=== PATIENT | female | born 1940 | race Caucasian/White ===

== ENCOUNTER → 2017-04-16 | Outpatient (CLI) | payer OTHER ==
[~2017-04-16] MED LIST: ACET-1256 PO; ALBUAER2 INH; ASPI325T4 PO; B-CO1CAP17 PO; CALC12502 PO; CHOL100027 PO; ESTR1CRE PV; FLUO40CA8 PO; GARLTAB3 PO; LORA-741 PO; OMEP40CA PO; SIMV20TA5 PO; TIOTCAP INH; TRIA3AER NAE; TRMCR130WC TOP; VITA100C2 PO
--- NOTE | 2017-04-16 15:45 | MAMMOGRAPHY REPORT ---
BILATERAL DIGITAL SCREENING MAMMOGRAM WITH CAD: 04/16/2017 CLINICAL HISTORY: Routine screening examination. TECHNIQUE: Bilateral CC and MLO views were obtained. Current study was also evaluated with a Compute r Aided Detection (CAD) system. COMPARISON: Comparison is made to exams dated: 01/31/2016 mammogram, 01/27/2015 mammogram, 06/17/2012 mammogram, 05/22/2011 mammogram, 03/23/2010 mammogram - [facility], and 10/13/2008. BREAST COMPOSITION: There are scattered areas of fibroglandular density in both breasts. FINDINGS: There is a 5 mm focal asymmetry in the lower outer posterior left breast, for which additi onal spot compression tomosynthesis views and targeted ultrasound are recommended, although this coul d represent a cyst. There is a stable circumscribed 8mm mass in the upper outer middle one third of the left breast, prev iously documented to represent a cyst on ultrasound. No other suspicious mass, architectural distorti on or cluster of microcalcifications is seen. IMPRESSION: ACR BI-RADS CATEGORY 0: INCOMPLETE EVALUATION: NEED ADDITIONAL IMAGING EVALUATION The 5 mm focal asymmetry in the lower outer posterior left breast needs additional evaluation. The patient will be called to schedule an appointment. Approximately 10% of breast cancers are not detected with mammography. A negative mammographic report should not delay biopsy if a clinically suggestive mass is present. Amanda Segura M.D. ay/:04/16/2017 14:59:21 Assistant Child Care Teacher: Emily MENSAH(Eddie)(Eliane), [facility] letter sent: Addl Imaging 0 BI-RADS Code: ACR BI-RADS Category 0: Incomplete Evaluation: Need Additional Imaging Evaluation
== END | disposition home or self-care (01) ==
LOC: C.MAMM 13:42
PROVIDERS: ATTEND Obstetrics & Gynecology
DX: Z12.31 Encounter for screening mammogram for malignant neoplasm of breast (principal); N64.89 Other specified disorders of breast

== ENCOUNTER → 2017-04-25 | Outpatient (CLI) | payer OTHER ==
--- NOTE | 2017-04-25 14:35 | MAMMOGRAPHY REPORT ---
UNILATERAL LEFT DIGITAL DIAGNOSTIC MAMMOGRAM TOMOSYNTHESIS WITH CAD AND TARGETED LEFT ULTRASOUND: CLINICAL HISTORY: Callback from screening mammogram for left breast mass. TECHNIQUE: Breast tomosynthesis in addition to standard 2D mammography was performed. Current study was also evaluated with a Computer Aided Detection (CAD) system. Spot compression left CC and MLO 2- D and tomosynthesis images were obtained. COMPARISON: Comparison is made to exams dated: 04/16/2017 mammogram, 01/31/2016 mammogram, 01/27/2015 mammogram, 06/17/2012 mammogram, 05/22/2011 mammogram, and 03/23/2010 mammogram - [facility]. BREAST COMPOSITION: There are scattered areas of fibroglandular density in the left breast. FINDINGS: Spot compression views demonstrate a persistent lobulated 7 mm mass within the left latera l breast at approximately 3 to 4:00 posteriorly. Additionally, there is an oval circumscribed 8 mm m ass in the left upper outer quadrant which was previously shown to represent a cyst on the prior 2008 ultrasound exam and is stable compared to multiple prior exams. Targeted ultrasound was performed of the area of the mammographic mass in the left breast. In the le ft breast at 4:00, 6 cm from the nipple, there is a lobulated hypoechoic 4 x 3 mm mass. This is not clearly cystic and could represent a complicated cyst versus a solid mass. This corresponds with the mammographic mass and is indeterminant. Recommend ultrasound-guided core needle biopsy for further evaluation. In the left breast at 2:00, 3 cm from the nipple, there is an oval anechoic circumscribe d 9 x 8 mm mass, which corresponds with the stable mammographic mass and is consistent with a benign simple cyst. IMPRESSION: ACR BI-RADS CATEGORY 4: SUSPICIOUS, TARGETED ULTRASOUND ACR BI-RADS CATEGORY 4: SUSPICIO US Hypoechoic 4 mm cystic versus solid mass in the left breast at 4:00 on ultrasound, which corresponds with the mammographic mass. The mass is indeterminate and ultrasound-guided core needle biopsy is re commended for further evaluation. A phone call was made to the physician's office to confirm faxed results were received. The patient has been verbally notified of the results. She tentatively scheduled the biopsy before leaving the [facility]. Approximately 10% of breast cancers are not detected with mammography. A negative mammographic report should not delay biopsy if a clinically suggestive mass is present. Kelly An M.D. ah/:04/25/2017 11:00:23 Supervisor [employer]: Jeimy KAPLAN)(Eliane), [facility] letter sent: Abnormal 4/5 BI-RADS Code: ACR BI-RADS Category 4: Suspicious Ultrasound BI-RADS: ACR BI-RADS Category 4: Suspici ous
== END | disposition home or self-care (01) ==
LOC: C.MAMM 10:28
PROVIDERS: ATTEND Obstetrics & Gynecology
DX: N64.89 Other specified disorders of breast (principal); N63.0 Unspecified lump in unspecified breast

== ENCOUNTER → 2017-05-07 | Outpatient (CLI) | payer OTHER ==
--- NOTE | 2017-05-07 10:19 | Discharge Instructions ---
Discharge Instructions Procedure Procedure Date: May 07, 2017. Reason for visit: Left Mass. Discharge Discharge Date: May 07, 2017. Discharge Diagnosis: post left breast ultrasound guided core biopsy Instructions Activity Recommendations: Additional Limitations (see below) Return to School/Work: no limitations Recommended Home Diet: No Limitations Provider Instructions: ACTIVITY RECOMMENDATIONS: * No lifting, pushing, pulling or exercising the affected side for three days. RETURN TO SCHOOL/WORK: * You may return to work/school after the procedure, but do not perform any strenuous activities for 24 to 48 hours. MEDICATIONS: * Tylenol (two 325 mg) every four to six hours if needed for mild pain (if not allergic to Tylenol). DIET: * Resume previous diet. SPECIAL CARE INSTRUCTIONS: * Keep biopsy site dry for 24 hours. May shower after 24 hours, but do not soak (bathe) incision. * May remove Tegaderm (plastic patch) tomorrow AFTER showering. * Leave the steri-strips on for one week. Allow the steri-strips to fall off by themselves. If not off after one week, you may remove them. You may place a Bandaid crosswise over the strips, if desired. * Apply ice 10 minutes on and 10 minutes off as needed. * Wear a bra at bedtime to sleep more comfortably for 2-3 days. * Your referring physician should have the results after approximately 5 to 7 business days. * Call for unusual bleeding, fever, drainage, etc or if you have any questions call [phone] during normal business hours or after hours call Dr Segura, . FOLLOW UP VISIT: Follow-up with Referring Physician as scheduled. Allergies Coded Allergies: No Known Allergies (Unverified , 08/25/12) Giovanni Jorgensen Recommendations: Call your doctor if: * Temperature above 101 degrees * Pain not relieved by pain medicine ordered * There is increased drainage or redness from any incision * You have any unanswered questions or concerns. Your Doctors Instructions noted above were prepared by provider Amanda Segura. Patient Signature Section: Patient Instructions Signature Page Perri White Patient (or Guardian) Signature/Date: I have read and understand the instructions given to me by my caregivers. Caregiver/RN/Doctor Signature/Date: The above-named patient and/or guardian has received patient instructions on this date. + Original Patient Signature Page (only) stays with chart. Please make copy for patient.
--- NOTE | 2017-05-08 07:37 | MAMMOGRAPHY REPORT ---
THIS REPORT HAS BEEN AMENDED. ULTRASOUND GUIDED BIOPSY LEFT BREAST: 05/07/2017 CLINICAL HISTORY: 77-year-old woman called back from screening mammography for a 6 mm focal asymmetry in the lower outer quadrant of the left breast posteriorly. She was found to have an indeterminate grouping of solid versus cystic masses in the 4:00 left breast and now presents for biopsy. COMPARISON: Comparison is made to exams dated: 04/25/2017 mammogram, 04/25/2017 ultrasound, 04/16/20 17 mammogram, 01/31/2016 mammogram, 01/27/2015 mammogram, and 06/17/2012 mammogram - [facility]. PATIENT CONSENT: The procedure, risks and benefits were discussed with the patient and informed conse nt was obtained both verbally and in writing. Specific risks to this procedure include: bleeding, in fection, puncture of adjacent structure, nontarget biopsy, sampling error, pain, metal allergy and me dication reaction. PROCEDURE DESCRIPTION: A time out was performed and the left breast was agreed as the site of biopsy. The skin was prepped and draped in the usual sterile fashion. The grouping of oval solid versus cyst ic masses in the 4:00 left breast was chosen as the target for biopsy. Subcutaneous and intraparenchy mal 1% buffered lidocaine, with and without epinephrine, was administered as local anesthesia. A skin incision was made. Through the incision, 3 samples were taken with a 14 gauge Achieve biopsy device . The grouping of masses decreased in size after each sample. A ribbon shaped metallic marker was p laced at the biopsy site. Hemostasis was achieved after manual compression. The patient tolerated the procedure well and there was no immediate complication. The samples were sent to the pathology depa rtment in an appropriately labeled container. Postprocedure left CC and ML tomosynthesis images were obtained. There is a new ribbon-shaped biopsy marker clip aligning with the previously observed focal asymmetry in question. The asymmetry has de creased in size mammographically, concordant with the documented decreasing size during the biopsy. IMPRESSION: ULTRASOUND GUIDED BIOPSY Status post ultrasound-guided core biopsy of an indeterminate grouping of solid versus cystic masses in the 4:00 left breast, with ribbon-shaped biopsy marker clip placed at the site. The patient will receive notification of the biopsy results from her referring physician. Amanda Segura M.D. ay/:05/07/2017 12:32:04 Dental Therapist: Le KAPLAN)(Eliane), [facility] AMENDMENT: 05/15/2017 Amanda Segura M.D. Pathology results from the ultrasound-guided core biopsy of a small lobulated mass versus grouping of masses in the 4:00 posterior left breast yielded benign breast tissue with usual ductal hyperplasia. Negative for in situ and invasive carcinoma. The pathology results are concordant with the imaging appearance. Given the multilobulated nature of the mass, would recommend follow-up left diagnostic tomosynthesis mammograms and possible ultrasound to ensure stability in 6 months. letter sent: Follow Up Recommended 3
--- NOTE | 2017-05-08 07:40 | MAMMOGRAPHY REPORT ---
UNILATERAL LEFT DIGITAL DIAGNOSTIC MAMMOGRAM TOMOSYNTHESIS: 05/07/2017 CLINICAL HISTORY: Indeterminate solid versus cystic mass versus grouping of masses in the 4:00 left b reast. Patient presents for ultrasound guided core biopsy. Please refer to report from left breast ultrasound guided core biopsy performed at the same time for full detail. IMPRESSION: POST PROCEDURE IMAGING FOR MARKER PLACEMENT Please refer to report from left breast ultrasound guided core biopsy performed at the same time for full detail. Approximately 10% of breast cancers are not detected with mammography. A negative mammographic report should not delay biopsy if a clinically suggestive mass is present. Amanda Segura M.D. ay/:05/07/2017 10:20:10 Import Export Coordinator: Le MENSAH(R)(M), [facility] BI-RADS Code: Post Procedure Imaging For Marker Placement
== END | disposition home or self-care (01) ==
LOC: C.MAMM 09:09
PROVIDERS: ATTEND Obstetrics & Gynecology
DX: N63.20 Unspecified lump in the left breast, unspecified quadrant (principal)

== ENCOUNTER 2019-10-26 12:15 | Inpatient (IN) ==
[2019-10-26] MEDS ORDERED: methylPREDNISolone 125 MG/2 ML VIAL IV STA (12:43)
[2019-10-26] MEDS ORDERED: ALBUT/IPRATROP 3MG/0.5MG NEB 3 ML VIAL INH STA (12:43)
--- NOTE | 2019-10-26 12:49 | Emergency Department Note ---
History of Present Illness General Chief complaint: Shortness of Breath/Dyspnea Stated complaint: SOB Time Seen by Provider: 10/26/19 12:35 Source: patient History of Present Illness Provider complaint: Shortness of breath Onset (ago): week(s) Location: chest Severity: moderate Pain Consistency: + intermittent Relieved By: + medication (Nebulizers and rescue kits) Associated symptoms: + chest pain, + cough and + weakness; no diaphoresis, no fever/chills, no malaise and no nausea/vomiting This is an 79-year-old female with a history of COPD presenting with shortness of breath for several weeks. She states is gotten worse over the past several days. The patient has been using rescue kits as provided by her PCP which include azithromycin and prednisone. She states they provide temporary relief but she still feels short of breath and is using nebulizers at home. She does not use oxygen at home. She has had no recent travel or exposure to sick people. She does have a chronic cough which she has had for several years. It is nonproductive. It has not changed in quality or severity. She also complains of chest pain which she has had for a year and a half. She describes it as an aching tightness in her chest. She says is not sharp or pressure-like. She has been seen by a braille and talking books clerk for this. She gets it intermittently for the past year and a half and it is not new today. She states is better with a heating pad. She denies any fever, diaphoresis, malaise or body aches, diar adeola, abdominal pain, loss of smell or taste or leg swelling or pain. Home Medications Home Medications Medication Instructions Recorded Confirmed Type apixaban [Eliquis] 5 mg PO BID 10/26/19 10/26/19 History atorvastatin 20 mg PO DAILY 10/26/19 10/26/19 History fluoxetine 40 mg PO DAILY 10/26/19 10/26/19 History glipizide 10 mg PO DAILY 10/26/19 10/26/19 History lorazepam 0.5 mg PO DAILY 10/26/19 10/26/19 History omeprazole 40 mg PO DAILY 10/26/19 10/26/19 History propranolol 60 mg PO DAILY 10/26/19 10/26/19 History Allergies Allergy/AdvReac Type Severity Reaction Status Date / Time No Known Allergies Allergy Unverified 10/26/19 14:07 Past Med/Surg History Medical History COPD (chronic obstructive pulmonary disease) Dyslipidemia Social History marital status: Current Living Situation: Spouse Feels Safe at Home: Yes Smoking Status: Never smoker Review of Systems See HPI for pertinent positives & negatives. and A total of 10 systems reviewed and were otherwise negative Physical Exam Vital Signs Vital Signs - 24 hr 10/26/19 12:15 10/26/19 12:19 10/26/19 12:43 Temperature 36.7 C Temperature Source Oral Pulse Rate 75 Pulse Rate [Right Finger] Respiratory Rate 20 Respiratory Effort / Characteristics Non-Labored Respiratory Depth Normal Blood Pressure 166/91 H Blood Pressure [Left Arm] Blood Pressure Mean 116 Blood Pressure Mean [Left Arm] Pulse Oximetry 96 95 96 Oxygen Delivery Method Room Air Room Air Room Air Sepsis Recent Fever Within 48 Hours No Sepsis New/Unexplained Change in Mental Status No Sepsis Action Taken by Nursing No Action Required 10/26/19 13:17 10/26/19 14:15 10/26/19 16:00 Temperature Temperature Source Pulse Rate Pulse Rate [Right Finger] 63 66 68 Respiratory Rate 16 18 18 Respiratory Effort / Characteristics Non-Labored Spontaneous Respiratory Depth Blood Pressure Blood Pressure [Left Arm] 150/78 H 154/95 H Blood Pressure Mean Blood Pressure Mean [Left Arm] 102 114 Pulse Oximetry 94 100 93 Oxygen Delivery Method Room Air Room Air Room Air Sepsis Recent Fever Within 48 Hours Sepsis New/Unexplained Change in Mental Status Sepsis Action Taken by Nursing Constitutional: Vital signs reviewed. Eyes: Pupils are equal round reactive to light. Conjunctiva are noninjected. ENT: Pharynx is clear without erythema or exudate. Mucous membranes are moist. Neck supple without meningeal signs. Respiratory: Mild tachypnea with diffuse wheezing bilaterally. Breath sounds a re equal bilaterally. Cardiovascular: Regular rate and rhythm. No rubs or gallops. GI: Soft, nondistended and nontender. Bowel sounds are present. Musculoskeletal: No peripheral edema. No lower extremity tenderness. Integumentary: No cyanosis. or jaundice. Neurological: The patient is awake and alert. No focal deficits. Psychiatric: Normal affect. Not anxious appearing. Course Administered Medications Discontinued Medications Albuterol (Duoneb) 12 ml INH ONE STA Stop: 10/26/19 12:44 Last Admin: 10/26/19 13:17 Dose: 12 ml Documented by: [id number] Methylprednisolone (Solumedrol) 125 mg IV NOW STA Stop: 10/26/19 12:44 Last Admin: 10/26/19 13:07 Dose: 125 mg Documented by: [id number] Medical Decision Making Differential Diagnosis COPD exacerbation, bronchitis, pneumonia, ACS, viral syndrome Medical Records Attestation: I reviewed the patient's medical records. I did perform a limited focused review of portions of the patient's old chart on the electronic medical record. The patient has had no recent pertinent visits to this hospital. Home Medications Current Medication List: was personally reviewed by me Laboratory Data Attestation: I reviewed the patient's lab results. Result diagrams: 10/26/19 12:53 10/26/19 12:53 Lab Results 10/26/19 10/26/19 10/26/19 Range/Units 12:53 12:53 12:53 WBC 11.51 H (4.8-10.8) K/uL RBC 5.01 (4.2-5.4) M/uL Hgb 15.1 (12.0-16.0) g/dL Hct 45.3 (37-47) % MCV 90.4 (80-100) fL MCH 30.1 (25-34) pg MCHC 33.3 (32-36) g/dL RDW Std Deviation 43.1 (36.4-46.3) fL RDW Coeff of Temo 13.0 (11.5-14.5) % Plt Count 248 (130-400) K/uL MPV 10.6 H (7.4-10.4) fL Immature Gran % (Auto) 0.3 % Neut % (Auto) 65.4 % Lymph % (Auto) 20.2 % [place] % (Auto) 6.9 % Eos % (Auto) 6.9 % Baso % (Auto) 0.3 % Immature Gran # (Auto) 0.03 H (0.00-0.02) K/uL Neut # (Auto) 7.54 H (1.4-6.5) K/uL Lymph # (Auto) 2.32 (1.2-3.4) K/uL [place] # (Auto) 0.79 H (0.11-0.59) K/uL Eos # (Auto) 0.79 H (0-0.5) K/uL Baso # (Auto) 0.04 (0-0.2) K/uL PT 11.5 (9.0-12.0) Seconds INR 1.1 (0.9-1.1) APTT 27.7 (21.0-31.0) Seconds PTT Ratio 1.0 Sodium 138 (136-145) mmol/L Potassium 3.8 (3.5-5.1) mmol/L Chloride 102 (98-107) mmol/L Carbon Dioxide 29 (21-32) mmol/L Anion Gap 6.0 (3-11) BUN 12 (7-18) mg/dl Creatinine 0.90 (0.6-1.2) mg/dl Est Cr Clr Drug Dosing 48.5 ml/min Est GFR ( Amer) 70.0 Est GFR (Non-Af Amer) 60.4 BUN/Creatinine Ratio 12.8 (10-20) Glucose 166 H (70-99) mg/dl Calcium 9.5 (8.5-10.1) mg/dl Total Bilirubin 1.0 (0.2-1) mg/dl AST 46 H (15-37) U/L ALT 22 (12-78) U/L Alkaline Phosphatase 130 H (45-117) U/L Troponin I < 0.015 (0-0.045) ng/ml Total Protein 6.7 (6.4-8.2) gm/dl Albumin 3.6 (3.4-5.0) gm/dl Globulin 3.1 (2.5-4.0) gm/dl Albumin/Globulin Ratio 1.2 (0.9-2) Influenza Type A (PCR) (Neg) Influenza Type B (PCR) (Neg) 10/26/19 Range/Units 13:00 WBC (4.8-10.8) K/uL RBC (4.2-5.4) M/uL Hgb (12.0-16.0) g/dL Hct (37-47) % MCV (80-100) fL MCH (25-34) pg MCHC (32-36) g/dL RDW Std Deviation (36.4-46.3) fL RDW Coeff of [place] (11.5-14.5) % Plt Count (130-400) K/uL MPV (7.4-10.4) fL Immature Gran % (Auto) % Neut % (Auto) % Lymph % (Auto) % [place] % (Auto) % Eos % (Auto) % Baso % (Auto) % Immature Gran # (Auto) (0.00-0.02) K/uL Neut # (Auto) (1.4-6.5) K/uL Lymph # (Auto) (1.2-3.4) K/uL [place] # (Auto) (0.11-0.59) K/uL Eos # (Auto) (0-0.5) K/uL Baso # (Auto) (0-0.2) K/uL PT (9.0-12.0) Seconds INR (0.9-1.1) APTT (21.0-31.0) Seconds PTT Ratio Sodium (136-145) mmol/L Potassium (3.5-5.1) mmol/L Chloride (98-107) mmol/L Carbon Dioxide (21-32) mmol/L Anion Gap (3-11) BUN (7-18) mg/dl Creatinine (0.6-1.2) mg/dl Est Cr Clr Drug Dosing ml/min Est GFR ( Amer) Est GFR (Non-Af Amer) BUN/Creatinine Ratio (10-20) Glucose (70-99) mg/dl Calcium (8.5-10.1) mg/dl Total Bilirubin (0.2-1) mg/dl AST (15-37) U/L ALT (12-78) U/L Alkaline Phosphatase (45-117) U/L Troponin I (0-0.045) ng/ml Total Protein (6.4-8.2) gm/dl Albumin (3.4-5.0) gm/dl Globulin (2.5-4.0) gm/dl Albumin/Globulin Ratio (0.9-2) Influenza Type A (PCR) Neg for Influ A (Neg) Influenza Type B (PCR) Neg for Influ B (Neg) Imaging Data Radiologist's Impression: XR chest 1V portable CLINICAL HISTORY: 79 years-old Female presenting with Dyspnea. TECHNIQUE: Portable upright AP view of the chest was obtained. COMPARISON: 12/31/2017. FINDINGS: Trace atherosclerosis of the aortic arch. Cardiac silhouette top normal in size. Minimal left basilar opacities. No pleural effusion or pneumothorax. Osseous structures normal. Upper abdomen normal. IMPRESSION: 1. Minimal left basilar opacities likely atelectasis or scarring. No convincing evidence of acute cardiopulmonary disease. ACT 112: Negative or not required by law. Electronically signed by: Fredis Alford M.D. 10/26/2019 1:09 PM ECG Data Attestation: I personally reviewed and interpreted this ECG as follows: Indication: + chest pain Rate (beats per minute): 70 Rhythm: + normal sinus ECG Intervals/blocks: no First degree AV block ECG ST segments: no ST elevation ECG Findings: no PVCs Blood Pressure Blood Pressure Findings: Elevated blood pressure Blood Pressure Disposition: Referred to patients primary care provider AFSHAN Narrative I did evaluate the patient as noted above. The patient is presenting with difficulty breathing. She does have COPD and has diffuse wheezing on examination. She does complain of chest tightness but she has had this for over a year and a half and it is unchanged. She also complains of a cough which she has had for several years which is unchanged. IV access was established. The patient was placed on a continuous nurse monitoring. Cardiac monitoring: Indication: Dyspnea and chest pain Rate and rhythm: Normal sinus rhythm rate of 75 without dysrhythmia. I did order and personally review the patient's 12-lead EKG as described above. She has no acute ischemic changes on her twelve-lead EKG. I did order and personally reviewed the images of the patient's chest x-ray as described above. There is no evidence of infiltrate. I did order and review the patient's blood work as noted in the electronic medical record. She has a mildly elevated white blood cell count but she has been on prednisone. She is not anemic. Electrolytes are unremarkable. Troponin is negative. I did treat the patient with Solu-Medrol IV. She was also given an hour-long DuoNeb with albuterol and Atrovent. I did reassess the patient. She has some improvement in her wheezing but still has significant wheezing. When we did ambulate her her pulse ox dropped into the high 80s. I recommended the patient stay in the hospital for further care and evaluation. At this time she has no known risk factors for COVID-19. She has a cough but it is chronic for 3 years and has not changed in quality. She complains of shortness of breath but this can be explained by her COPD. I did discuss the case with the hospitalist and assistant case manager. Impression & Plan Acute exacerbation of chronic obstructive airways disease, Left-sided chest p ain, Chronic cough Discharge Plan Visit Data Chief Complaint: Shortness of Breath/Dyspnea Stated Complaint: SOB ED Provider: Nazario Anderson Discharge Problem: Acute exacerbation of chronic obstructive airways disease, Left-sided chest pain, Chronic cough Forms Stand Alone Forms: [facility] Prescriptions Prescriptions: No Action fluoxetine 40 mg capsule 40 mg PO DAILY RF: 0 atorvastatin 20 mg tablet 20 mg PO DAILY RF: 0 glipizide 10 mg tablet 10 mg PO DAILY RF: 0 propranolol 60 mg capsule,extended release 24 hr 60 mg PO DAILY RF: 0 omeprazole 40 mg capsule,delayed release(DR/EC) 40 mg PO DAILY RF: 0 lorazepam 0.5 mg tablet 0.5 mg PO DAILY RF: 0 Eliquis 5 mg tablet 5 mg PO BID RF: 0 Referrals Referrals: Isreal Jones MD [Primary Care Provider] -
[2019-10-26 13:05] LABS: Basophils # (auto) 0.04 K/uL (0-0.2); Basophils % (auto) 0.3 %; Eosinophils # (auto) 0.79 K/uL (0-0.5); Eosinophils % (auto) 6.9 %; Hematocrit (blood only) 45.3 % (37-47); Hemoglobin 15.1 g/dL (12.0-16.0); Immature Granulocytes # (auto) 0.03 K/uL (0.00-0.02); Immature Granulocytes % (auto) 0.3 %; Lymphocytes # (auto) 2.32 K/uL (1.2-3.4); Lymphocytes % (auto) 20.2 %; Mean Corpuscular Hemoglobin 30.1 pg (25-34); Mean Corpuscular Hgb Conc 33.3 g/dL (32-36); Mean Corpuscular Volume 90.4 fL (80-100); Mean Platelet Volume 10.6 fL (7.4-10.4); Monocytes # (auto) 0.79 K/uL (0.11-0.59); Monocytes % (auto) 6.9 %; Neutrophils # (auto) 7.54 K/uL (1.4-6.5); Neutrophils % (auto) 65.4 %; Platelet Count 248 K/uL (130-400); RDW Standard Deviation 43.1 fL (36.4-46.3); Red Blood Count 5.01 M/uL (4.2-5.4); White Blood Count 11.51 K/uL (4.8-10.8)
--- NOTE | 2019-10-26 13:10 | XRay Report ---
XR chest 1V portable CLINICAL HISTORY: 79 years-old Female presenting with Dyspnea. TECHNIQUE: Portable upright AP view of the chest was obtained. COMPARISON: 12/31/2017. FINDINGS: Trace atherosclerosis of the aortic arch. Cardiac silhouette top normal in size. Minimal left basilar opacities. No pleural effusion or pneumothorax. Osseous structures normal. Upper abdomen normal. IMPRESSION: 1. Minimal left basilar opacities likely atelectasis or scarring. No convincing evidence of acute ca rdiopulmonary disease. ACT 112: Negative or not required by law. Electronically signed by: Fredis Alford M.D. 10/26/2019 1:09 PM
[2019-10-26 13:17] LABS: INR 1.1 (0.9-1.1); Partial Thromboplastin Time 27.7 Seconds (21.0-31.0); Prothrombin Time 11.5 Seconds (9.0-12.0)
[2019-10-26 13:20] LABS: Alanine Aminotransferase 22 U/L (12-78); Albumin Level 3.6 gm/dl (3.4-5.0); Aspartate Aminotransferase 46 U/L (15-37); BUN Creatinine Ratio 12.8 (10-20); Blood Urea Nitrogen 12 mg/dl (7-18); Calcium 9.5 mg/dl (8.5-10.1); Carbon Dioxide 29 mmol/L (21-32); Chloride 102 mmol/L (98-107); Creatinine Clr Calc Pharmacy 48.5 ml/min; Est GFR (Non-African American) 60.4; Glucose 166 mg/dl (70-99); Potassium 3.8 mmol/L (3.5-5.1); Sodium 138 mmol/L (136-145)
[2019-10-26 13:24] LABS: Albumin Globulin Ratio 1.2 (0.9-2); Alkaline Phosphatase 130 U/L (45-117); Globulin 3.1 gm/dl (2.5-4.0); Total Protein 6.7 gm/dl (6.4-8.2); Troponin I < 0.015 ng/ml (0-0.045)
[2019-10-26 13:54] LABS: Influenza A virus by PCR Neg for Influ A (Neg); Influenza B virus by PCR Neg for Influ B (Neg)
[2019-10-26] MEDS ORDERED: CARBOHYDRATES FOR HYPOGLYCEMIA PO PRN (17:54)
[2019-10-26] MEDS ORDERED: GLUCAGON FOR INJ 1 MG VIAL SQ PRN (17:54)
[2019-10-26] MEDS ORDERED: GLUCOSE 10 TABS/TUBE PO PRN (17:54)
[2019-10-26] MEDS ORDERED: DEXTROSE 50% 50 ML SYRINGE IV PRN (17:54)
[2019-10-26] MEDS ORDERED: GLUCOSE 40% GEL 15 GM TUBE PO PRN (17:54)
--- NOTE | 2019-10-26 18:02 | History & Physical Report ---
Date of Service October 26, 2019 Assessment & Plan (1) Acute exacerbation of chronic obstructive airways disease: -given solumedrol 125 mg x 1 by ED provider. despite nebulizer treatment by ED provider, patient continue to have expiratory wheeze -patient also has been chest discomfort with coughing and relieved when coughing out mucous -admission chest X ray: no lung infiltrates of pneumonia or pulmonary edema -initial troponin negative, low suspicion for coronary artery disease, patient a lready anticoagulated on eliquis for PAF, can trend troponins x 2 sets -low suspicion of COVID-19, based on age, will have send out COVID-19 testing performed to rule out viral exacerbation of COPD, will need tp be on isolation/contact isolation -place on scheduled q6 nebulizer treatments, plan for solumedrol 40 mg IV in tomorrow morning Paroxysmal atrial fibrillation -continue home dose Eliquis DVT: prophylaxis on eliquis Essential tremors -on propranolol -PT/OT evaluations Type 2 diabetes mellitus without rn long term care current use of insulin -check HbA1c -hold home dose glipizide, give sliding scale insulin as needed History of Migraine headache -acetaminophen prn Mood disorder: anxiety, depresssion -lorazepam 0.5 mg BID prn for anxiety -fluoxetine History of Present Illness 79-year-old female with a history of COPD presenting with shortness of breath for several weeks. Has been having wheezing. Chest pain relieved by coughing up mucous. history of headaches. outpatient records of migraine headaches on problem list. denies recent sick contacts. no recent travel history. she reports that her daughter helps her with bringing food in to her house. patient has history of tremors but no falls at home. denies fevers. denies abdominal pain. denies vomiting. denies changes in urination or with bowel movements. patient denies any problems with taking Eliquis for paroxysmal atrial fibrillation. normal heart rates in the ED Family History: Essential Tremors in sibling Allergies: patient denies any drug or food allergies Primary Care Provider: Isreal Jones MD Allergies Allergy/AdvReac Type Severity Reaction Status Date / Time No Known Allergies Allergy Unverified 10/26/19 14:07 Home Medications Home Medications Medication Instructions Recorded Confirmed Type apixaban [Eliquis] 5 mg PO BID 10/26/19 10/26/19 History atorvastatin 20 mg PO DAILY 10/26/19 10/26/19 History fluoxetine 40 mg PO DAILY 10/26/19 10/26/19 History glipizide 10 mg PO DAILY 10/26/19 10/26/19 History lorazepam 0.5 mg PO DAILY 10/26/19 10/26/19 History omeprazole 40 mg PO DAILY 10/26/19 10/26/19 History propranolol 60 mg PO DAILY 10/26/19 10/26/19 History Past Med/Surg History Medical History COPD (chronic obstructive pulmonary disease) Dyslipidemia Social History marital status: Current Living Situation: Spouse Feels Safe at Home: Yes Smoking Status: Never smoker Review of Systems Review of Systems: All systems reviewed & are unremarkable except as noted in HPI & below Physical Exam Constitutional: comfortable Eyes: PERRL, conjunctivae normal, anicteric sclerae EOM intact bilaterally ENMT: external ear and nose normal, oropharynx normal Neck: normal visual inspection Respiratory: normal respiratory effort and + audible wheezes Cardiovascular: Rate/Rhythm: regular rate Gastrointestinal (Abdomen): normal bowel sounds, soft, nontender, no hepatosplenomegaly Musculoskeletal: Head/Neck/Chest: normocephalic and head atraumatic Neurologic: PERRL, EOMI, accommodation nl, no face palsy, no dysarthria CN's II-XI intact bilaterally Psychiatric: A+Ox3, euthymic affect Results & Data Results & Data ([facility]) Vital Signs (Past 12 Hours) Vital Signs Temp Pulse Pulse Resp BP BP Pulse Ox 10/26/19 16:00 68 18 154/95 H 93 10/26/19 14:15 66 18 150/78 H 100 10/26/19 13:17 63 16 94 10/26/19 12:43 96 10/26/19 12:19 36.7 C 75 20 166/91 H 95 10/26/19 12:15 96 Code Status & VTE Plan VTE Prophylaxis Plan VTE Prophylaxis will be ordered: Yes
[2019-10-26] MEDS ORDERED: ONDANSETRON INJ 2 MG/ML 2 ML VIAL IV PRN (18:03)
[2019-10-26] MEDS ORDERED: ACETAMINOPHEN 325 MG TAB PO PRN (18:03)
[2019-10-26 18:04] LABS: C Reactive Protein 0.32 mg/dl (0-0.29); Ferritin 126.1 ng/ml (8-388)
[2019-10-26] MEDS ORDERED: ALBUT/IPRATROP 3MG/0.5MG NEB 3 ML VIAL NEB SCH (19:00)
[2019-10-26] MEDS: APIXABAN 5 MG TABLET PO SCH (20:32)
[2019-10-26] MEDS ORDERED: APIXABAN 5 MG TABLET PO SCH (21:00)
[2019-10-26] MEDS ORDERED: ALBUTEROL HFA 8 GM INHALER INH PRN (21:12)
[2019-10-26] MEDS: INSULIN ASPART 100 UNITS/ML 3 ML PEN SC SCH (22:26)
[2019-10-26] MEDS ORDERED: ACETAMINOPHEN 325 MG TAB PO STA (22:35)
[2019-10-27 05:04] LABS: Basophils # (auto) 0.01 K/uL (0-0.2); Basophils % (auto) 0.1 %; Hematocrit (blood only) 43.5 % (37-47); Hemoglobin 14.4 g/dL (12.0-16.0); Immature Granulocytes # (auto) 0.02 K/uL (0.00-0.02); Immature Granulocytes % (auto) 0.2 %; Lymphocytes # (auto) 2.03 K/uL (1.2-3.4); Lymphocytes % (auto) 18.1 %; Mean Corpuscular Hemoglobin 29.4 pg (25-34); Mean Corpuscular Hgb Conc 33.1 g/dL (32-36); Mean Corpuscular Volume 88.8 fL (80-100); Mean Platelet Volume 11.2 fL (7.4-10.4); Monocytes # (auto) 0.19 K/uL (0.11-0.59); Monocytes % (auto) 1.7 %; Neutrophils # (auto) 8.94 K/uL (1.4-6.5); Neutrophils % (auto) 79.9 %; Platelet Count 263 K/uL (130-400); RDW Coefficient of Variation 12.8 % (11.5-14.5); RDW Standard Deviation 41.3 fL (36.4-46.3); White Blood Count 11.19 K/uL (4.8-10.8)
[2019-10-27 05:46] LABS: Alanine Aminotransferase 20 U/L (12-78); Albumin Level 3.3 gm/dl (3.4-5.0); Aspartate Aminotransferase 31 U/L (15-37); BUN Creatinine Ratio 21.4 (10-20); Blood Urea Nitrogen 17 mg/dl (7-18); Calcium 9.5 mg/dl (8.5-10.1); Carbon Dioxide 26 mmol/L (21-32); Chloride 103 mmol/L (98-107); Creatinine Clr Calc Pharmacy 54.1 ml/min; Est GFR (African American) 79.5; Est GFR (Non-African American) 68.6; Glucose 223 mg/dl (70-99); Potassium 4.3 mmol/L (3.5-5.1); Sodium 135 mmol/L (136-145)
[2019-10-27 05:51] LABS: Alkaline Phosphatase 115 U/L (45-117); Bilirubin,Total 0.8 mg/dl (0.2-1); Globulin 3.3 gm/dl (2.5-4.0); Total Protein 6.6 gm/dl (6.4-8.2); Troponin I < 0.015 ng/ml (0-0.045)
[2019-10-27 06:09] LABS: Estimated Average Glucose 163 mg/dl; Hemoglobin A1C 7.3 % (4.5-5.6)
[2019-10-27] MEDS ORDERED: AZITHROMYCIN 250 MG TAB PO ONE (07:27)
[2019-10-27] MEDS ORDERED: ALBUT/IPRATROP 3MG/0.5MG NEB 3 ML VIAL NEB SCH (07:30)
[2019-10-27] MEDS ORDERED: ALBUTEROL HFA 8 GM INHALER INH SCH (07:30)
[2019-10-27] MEDS ORDERED: LORazepam 0.5 MG TAB PO SCH ×2 (08:00→09:00)
[2019-10-27] MEDS ORDERED: FLUOXETINE HCL 20 MG CAP PO SCH ×2 (08:00→09:00)
[2019-10-27] MEDS ORDERED: ATORVASTATIN 20 MG TAB PO SCH ×2 (08:00→09:00)
[2019-10-27] MEDS ORDERED: PANTOprazole 40 MG TAB PO SCH ×2 (08:00→09:00)
[2019-10-27] MEDS ORDERED: PROPRANOLOL HCL 60 MG LA CAP PO SCH ×2 (08:00→09:00)
[2019-10-27] MEDS: APIXABAN 5 MG TABLET PO SCH (08:50)
[2019-10-27] MEDS: methylPREDNISolone 40 MG in SYRINGE 0 ML IV SCH ×2 (08:57→09:47)
[2019-10-27] MEDS: INSULIN ASPART 100 UNITS/ML 3 ML PEN SC SCH ×2 (08:58→13:15)
[2019-10-27] MEDS ORDERED: FLUTICASONE/VILANTEROL 100/25MCG 14 PUFFS/INHALER INH SCH (09:00)
[2019-10-27] MEDS ORDERED: ACETAMINOPHEN 325 MG TAB PO PRN (09:02)
[2019-10-27] MEDS ORDERED: predniSONE 20 MG TAB PO STA (09:37)
[2019-10-27] MEDS ORDERED: SUMAtriptan succinate 25 MG TAB PO PRN (10:28)
--- NOTE | 2019-10-27 10:47 | Hospitalist Progress Note ---
Date of Service October 27, 2019 Assessment & Plan (1) Acute exacerbation of chronic obstructive airways disease: -given solumedrol 125 mg x 1 by ED provider. despite nebulizer treatment by ED provider, patient continue to have expiratory wheeze -patient also has been chest discomfort with coughing and relieved when coughing out mucous -admission chest X ray: no lung infiltrates of pneumonia or pulmonary edema - low suspicion for coronary artery disease, patient already anticoagulated on e liquis for PAF, can troponins negative x 2 -low suspicion of COVID-19, based on age, a send out COVID-19 testing performed on 10/26/2019 to rule out viral exacerbation of COPD, patient was placed on isolation/contact isolation as per hospital protocol and continued beta agonists -Disposition and plans: 10/27/2019: Patient seen and examined in AM. She had headache when she woke up and it resolved. Her breathing is improved. COVID-19 results returned as negative and patient and her daughter was updated about no COV-19 exposure as per testing Patient was given a dose of azithromycin 500 mg as respiratory antibiotic as part of COPD exacerbation treatment and electronic prescription then azithromycin of 250 mg daily starting on 10/28/2019 for 4 more days. Patient was given prednisone 40 mg in morning of 10/27/2019 and electronic prescription made of 40 mg prednisone starting on 10/28/2019 for 5 more days Patient was given Ellipta inhalations in morning of 10/27/19 and electronic prescription of Advair inhaler as 2 puffs once day for every day electronic prescription of albuterol inhaler 2 puffs to be taken as needed every 6 hours for shortness of breath or wheezing as a rescue inhaler hospice case manager arranging delivery of nebulizer machine so that patient can take nebulizer treatment every 6 hours as needed for shortness or wheezing if albuterol inhaler does not work to alleviate respiratory symptoms all electronic prescriptions made to [facility] [address] [place] [address], [place] [address]. 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 Electronic prescriptions made for acetaminophen 325mg every 6 hours as needed for pain (or fever). also electronic prescription of migraine headache medication for sumatriptan 25 mg twice a day as needed for headache. Patient does not appear to have focal neuro logical deficits and although she was offered CT head or Brain MRI testing by hospital doctor for her headache concerns, the patient wishes to discuss with primary care doctor and for any prior insurance authorizations Mood disorder: Anxiety, depression -lorazepam 0.5 mg BID prn for anxiety -fluoxetine Daughter Grecia [phone] Walt home phone [phone] Son is named Burke [phone] Admission and Anticipated Discharge Date Admission Date: October 26, 2019 Subjective Patient seen and examined in AM. She had headache when she woke up and it resolved. Her breathing is improved. COVID-19 results returned as negative and patient and her daughter was updated about no COV-19 exposure. denies chest pain today. no abdomen pain. no nausea. no vomiting. no dizziness. Discharge plans and followups discussed at length Review of Systems Review of Systems: All systems reviewed & are unremarkable except as noted in Subjective Physical Exam Constitutional: comfortable Eyes: PERRL, conjunctivae normal, anicteric sclerae EOM intact bilaterally ENMT: external ear and nose normal, oropharynx normal Neck: normal visual inspection Respiratory: normal respiratory effort Cardiovascular: Rate/Rhythm: regular rate Gastrointestinal (Abdomen): normal bowel sounds, soft, nontender, no hepatosplenomegaly Musculoskeletal: Head/Neck/Chest: normocephalic and head atraumatic Neurologic: PERRL, EOMI, accommodation nl, no face palsy, no dysarthria CN's II-XI intact bilaterally Psychiatric: A+Ox3, euthymic affect Results & Data Results & Data ([facility]) Vital Signs (Past 12 Hours) Vital Signs Temp Pulse Pulse Resp BP Pulse Ox 10/27/19 08:53 36.9 C 74 18 156/81 H 93 10/27/19 07:53 79 18 96 10/27/19 00:55 36.9 C 80 18 152/75 H 91 10/26/19 22:42 80 176/84 H
[2019-10-27] MEDS ORDERED: ALBUT/IPRATROP 3MG/0.5MG NEB 3 ML VIAL NEB PRN (11:45)
--- NOTE | 2019-10-27 11:48 | Discharge Summary ---
Date of Service October 27, 2019 Admission HPI Per Admitting Provider 79-year-old female with a history of COPD presenting with shortness of breath for several weeks. Has been having wheezing. Chest pain relieved by coughing up mucous. history of headaches. outpatient records of migraine headaches on problem list. denies recent sick contacts. no recent travel history. she reports that her daughter helps her with bringing food in to her house. patient has history of tremors but no falls at home. denies fevers. denies abdominal pain. denies vomiting. denies changes in urination or with bowel movements. patient denies any problems with taking Eliquis for paroxysmal atrial fibrillation. normal heart rates in the ED Principal Diagnosis Acute Exacerbation of Chronic obstructive pulmonary disease (COPD), Headache, Anxiety, Essential Tremors, Paroxysmal atrial fibrillation, Type 2 diabetes mellitus without intermediate current use of insulin Discharge Exam Constitutional comfortable Eyes PERRL, conjunctivae normal, anicteric sclerae EOM intact bilaterally ENMT external ear and nose normal, oropharynx normal Neck normal visual inspection Respiratory normal respiratory effort Cardiovascular Rate/Rhythm: regular rate Gastrointestinal (Abdomen) normal bowel sounds, soft, nontender, no hepatosplenomegaly Musculoskeletal Head/Neck/Chest: normocephalic and head atraumatic Neurologic PERRL, EOMI, accommodation nl, no face palsy, no dysarthria CN's II-XI intact bilaterally Psychiatric A+Ox3, euthymic affect Discharge Data Allergies Allergy/AdvReac Type Severity Reaction Status Date / Time No Known Allergies Allergy Unverified 10/26/19 14:07 Consultations 10/26/19 16:27 ED Decision to Admit Stat 10/26/19 19:48 Consult Case Management - Discharge Planning Routine Hospital Course (1) Acute exacerbation of chronic obstructive airways disease: -given solumedrol 125 mg x 1 by ED provider. despite nebulizer treatment by ED provider, patient continue to have expiratory wheeze -patient also has been chest discomfort with coughing and relieved when coughing out mucous -admission chest X ray: no lung infiltrates of pneumonia or pulmonary edema - low suspicion for coronary artery disease, patient already anticoagulated on eliquis for PAF, can troponins negative x 2 -low suspicion of COVID-19, based on age, a send out COVID-19 testing performed on 10/26/2019 to rule out viral exacerbation of COPD, patient was placed on isolation/contact isolation as per hospital protocol and continued beta agonists -Disposition and plans: 10/27/2019: Patient seen and examined in AM. She had headache when she woke up and it resolved. Her breathing is improved. COVID-19 results returned as negative and patient and her daughter was updated about no COV-19 exposure as per testing Patient was given a dose of azithromycin 500 mg as respiratory antibiotic as part of COPD exacerbation treatment and electronic prescription then azithromycin of 250 mg daily starting on 10/28/2019 for 4 more days. Patient was given prednisone 40 mg in morning of 10/27/2019 and electronic prescription made of 40 mg prednisone starting on 10/28/2019 for 5 more days Patient was given Ellipta inhalations in morning of 10/27/19 and electronic prescription of Advair inhaler as 2 puffs once day for every day electronic prescription of albuterol inhaler 2 puffs to be taken as needed every 6 hours for shortness of breath or wheezing as a rescue inhaler outpatient case manager arranging delivery of nebulizer machine so that patient can take nebulizer treatment every 6 hours as needed for shortness or wheezing if albuterol inhaler does not work to alleviate respiratory symptoms all electronic prescriptions made to [facility] [address] [place] [address]. Patient given paper prescription for pulse oximeter, patient's oxygen levels should be above 88% on room air in general Patient advised to follow up with primary care doctor as ask for formal Pulmonary Function Testing (PFT) if this was not already performed and pulmonary doctor referral if needed Paroxysmal atrial fibrillation -continue home dose Eliquis -in sinus rhythm DVT: prophylaxis on eliquis Essential tremors -on propranolol Type 2 diabetes mellitus without custodial current use of insulin -HbA1c 7.2 -patient was given sliding scale insulin while inpatient, she may resume her home dose glipizide on discharge Headache, History of Migraine headache -Patient concerned about headaches intermittently. Electronic prescriptions made for acetaminophen 325mg every 6 hours as needed for pain (or fever). also electronic prescription of migraine headache medication for sumatriptan 25 mg twice a day as needed for headache. Patient does not appear to have focal neurological deficits and although she was offered CT head or Brain MRI testing by hospital doctor for her headache concerns, the patient wishes to discuss with primary care doctor and for any prior insurance authorizations Mood disorder: Anxiety, depression -lorazepam 0.5 mg BID prn for anxiety -fluoxetine Daughter Grecia [phone] Walt home phone [phone] Son is named Burke [phone] Total Time Total Time Spent Total Time Spent (In Minutes): 40 minutes Total Time Includes: Examination of the Patient, Discharge Planning, Medication Reconciliation and Communication With Other Providers Discharge Plan Discharge Items Patient Disposition: Home - Self-Care Reason For Visit: COPD EXACERBATION,RULE OUT COVID-19 Discharge Diagnosis: Acute Exacerbation of Chronic obstructive pulmonary disease (COPD), Headache, Anxiety, Essential Tremors, Paroxysmal atrial fibrillation, Type 2 diabetes mellitus without intermediate current use of insulin Condition on Discharge: Good Activity: Per Instructions section Non-emergency contact: Primary Care Provider Call non-emergency contact if: you have any medication questions Follow-up/Referrals: Isreal Jones MD [Primary Care Provider] - 11/04/19 11:20 am (Dr. Jones is unavailable, your appointment is with Dr. Deepika Maynard) Diet: Carb Consistent or DM2 Addtl Attending Provider Instructions: Patient was treated for COPD exacerbation in the hospital with nebulizers and steroids no COV-19 exposure as per testing Patient was given a dose of azithromycin 500 mg as respiratory antibiotic as part of COPD exacerbation treatment and electronic prescription then azithromycin of 250 mg daily starting on 10/28/2019 for 4 more days. Patient was given prednisone 40 mg in morning of 10/27/2019 and electronic prescription made of 40 mg prednisone starting on 10/28/2019 for 5 more days Patient was given Ellipta inhalations in morning of 10/27/19 and electronic prescription of Advair inhaler as 2 puffs once day for every day electronic prescription of albuterol inhaler 2 puffs to be taken as needed every 6 hours for shortness of breath or wheezing as a rescue inhaler outpatient case manager arranging delivery of nebulizer machine so that patient can take nebulizer treatment every 6 hours as needed for shortness or wheezing if albuterol inhaler does not work to alleviate respiratory symptoms all electronic prescriptions made to [facility] [address] [place] [address]. Patient given paper prescription for pulse oximeter, patient's oxygen levels should be above 88% on room air in general Patient advised to follow up with primary care doctor as ask for formal Pulmonary Function Testing (PFT) if this was not already performed and pulmonary doctor referral if needed Patient concerned about headaches intermittently. Electronic prescriptions made for acetaminophen 325mg every 6 hours as needed for pain (or fever). also [employer] prescription of migraine headache medication for sumatriptan 25 mg twice a day as needed for headache. Patient does not appear to have focal neurological deficits and although she was offered CT head or Brain MRI testing by hospital doctor for her headache concerns, [facility] patient wishes to discuss with primary care doctor and for any prior insurance authorizations Pending Studies at Discharge: Yes Stand-Alone Forms: [facility], Smoking Cessation Medications and DC Order Prescriptions: New azithromycin [Zithromax] 250 mg Tablet 250 mg PO DAILY 4 Days Qty: 4 RF: 0 acetaminophen 325 mg tablet 325 mg PO Q6H PRN (Reason: fever or pain) 5 Days Qty: 20 RF: 0 prednisone 20 mg Tablet 40 mg PO DAILY 5 Days Qty: 10 RF: 0 sumatriptan succinate 25 mg Tablet 25 mg PO BID PRN (Reason: migraine headache) 10 Days Qty: 20 RF: 0 fluticasone propion-salmeterol [Advair Diskus] 100-50 mcg/dose blister with device 1 puffs INH DAILY 30 Days Qty: 60 RF: 0 albuterol sulfate 90 mcg/actuation HFA aerosol inhaler 2 puffs INH Q6H PRN (Reason: shortness of breath or wheezing) 30 Days Qty: 6 .7 RF: 0 ipratropium-albuterol 0.5 mg-3 mg(2.5 mg base)/3 mL solution for nebulization 3 ml INH Q6H PRN (Reason: shortness of breath or wheezing) 30 Days Qty: 180 RF: 0 Continued fluoxetine 40 mg capsule 40 mg PO DAILY RF: 0 atorvastatin 20 mg tablet 20 mg PO DAILY RF: 0 glipizide 10 mg tablet 10 mg PO DAILY RF: 0 propranolol 60 mg capsule,extended release 24 hr 60 mg PO DAILY RF: 0 omeprazole 40 mg capsule,delayed release(DR/EC) 40 mg PO DAILY RF: 0 lorazepam 0.5 mg tablet 0.5 mg PO DAILY RF: 0 Eliquis 5 mg tablet 5 mg PO BID RF: 0 Discharge Orders: Discharge Order (Routine); Ordered 10/27/19 Ordered By: Gutierrez Butts/Other Patient Handouts: Hyperglycemia, Hypoglycemia, Diabetes Type 2 Managing Admission Data Admit Date/Time: 10/26/19 17:57 Attending Provider: Gutierrez Schreiber Admit Provider: Gutierrez Schreiber Primary Care Provider: Isreal Jones Other Providers: Nicolle Walton
--- NOTE | 2019-10-27 11:57 | Electrocardiogram Report ---
Test Reason : Blood Pressure : / mmHG Vent. Rate : 070 BPM Atrial Rate : 070 BPM P-R Int : 156 ms QRS Dur : 064 ms QT Int : 400 ms P-R-T Axes : 052 023 077 degrees QTc Int : 432 ms Normal sinus rhythm Nonspecific T wave abnormality Abnormal ECG No previous ECGs available Confirmed by Aubrey Acosta ([id number]) on 10/27/2019 11:57:05 AM Referred By: Confirmed By:Dre Acosta
[2019-10-28] MEDS ORDERED: AZITHROMYCIN 250 MG TAB PO SCH ×2 (08:00→09:00)
[2019-10-28] MEDS ORDERED: FLUTICASONE/VILANTEROL 100/25MCG 14 PUFFS/INHALER INH SCH (08:00)
[2019-10-28] MEDS ORDERED: predniSONE 20 MG TAB PO SCH ×2 (08:00→09:00)
== END 2019-10-27 13:31 | disposition home or self-care (01) | DRG 192 ==
LOC: ED 12:15 → 3E 17:57

== ENCOUNTER 2020-12-09 13:52 | Observation (INO) ==
[2020-12-09] MEDS ORDERED: NITROGLYCERIN SL 0.4 MG/TAB TAB SL PRN ×2 (14:10→20:32)
[2020-12-09] MEDS ORDERED: ASPIRIN CHEW 324 MG PO STA (14:33)
--- NOTE | 2020-12-09 14:33 | Emergency Department Note ---
History of Present Illness General Chief Complaint: Cardiac Assessment Stated Complaint: CHEST PAINS,SOB,NAUSEA,REF BY DOC Time Seen by Provider: 12/09/20 14:05 History of Present Illness Provider Complaint: chest pain Time: 02:00 Duration: constant Onset: during rest Pain Location: substernal and left chest Pain Radiation: LUE Severity: mild Maximum Pain Intensity: 2 Current Pain Intensity: 2 Quality: + aching Relieved By: + nothing Exacerbated By: + nothing Context: no recent illness, no recent surgery, no recent immobilization, no recent travel, no trauma/injury, no new medications and no history of DVT/PE Associated symptoms: + dyspnea; no nausea, no vomiting, no diaphoresis, no syncope, no palpitations, no fever, no cough and no leg swelling Home Medications Medication Instructions Recorded Confirmed Type Eliquis 5 mg PO QPM 10/26/19 12/09/20 History atorvastatin 20 mg PO QAM 10/26/19 12/09/20 History fluoxetine 40 mg PO QAM 10/26/19 12/09/20 History glipizide 10 mg PO QAM 10/26/19 12/09/20 History lorazepam 0.5 mg PO QPM 10/26/19 12/09/20 History omeprazole 40 mg PO QAM 10/26/19 12/09/20 History propranolol 60 mg PO QPM 10/26/19 12/09/20 History cyanocobalamin (vitamin B-12) 100 mcg PO QAM 12/09/20 12/09/20 History [Vitamin B-12] fluticasone furoate-vilanterol 1 inh INHALATION DAILY 12/09/20 12/09/20 History [Breo Ellipta] garlic 100 mg PO QAM 12/09/20 12/09/20 History metformin 1,000 mg PO BIDM 12/09/20 12/09/20 History sumatriptan succinate 25 mg PO UD PRN 12/09/20 12/09/20 History Allergies Allergy/AdvReac Type Severity Reaction Status Date / Time No Known Allergies Allergy Unverified 12/09/20 14:25 Past Med/Surg History Medical History COPD (chronic obstructive pulmonary disease) Dyslipidemia No pertinent family history Surgical History No pertinent past surgical history Social History Smoking Status: Never smoker Second Hand Exposure: Yes; Hx Alcohol Use: Yes Alcohol type: hard liquor Hx Substance Use: No Preferred Language: Spanish Communication Ability: Effective Police Manager Required: No Beliefs That Will Affect Care: None marital status: Current Living Situation: Spouse Feels Safe at Home: Yes Assistive Devices: None Review of Systems A total of 10 systems reviewed and were otherwise negative Physical Exam Vital Signs Vital Signs - 24 hr 12/09/20 14:03 12/09/20 14:05 12/09/20 14:12 Pulse Rate 71 69 65 Pulse Rate from SpO2 Sensor 70 65 Respiratory Rate 18 21 18 Blood Pressure 146/84 H 146/84 H Blood Pressure Mean 104 104 Pulse Oximetry 98 98 98 Oxygen Delivery Method Room Air Sepsis Recent Fever Within 48 Hours No Sepsis New/Unexplained Change in Mental Status No Sepsis Action Taken by Nursing No Action Required 12/09/20 14:13 12/09/20 14:30 12/09/20 15:00 Pulse Rate 66 60 Pulse Rate from SpO2 Sensor 65 61 Respiratory Rate 18 21 Blood Pressure 127/65 119/65 Blood Pressure Mean 85 83 Pulse Oximetry 98 99 96 Oxygen Delivery Method Room Air Room Air Sepsis Recent Fever Within 48 Hours Sepsis New/Unexplained Change in Mental Status Sepsis Action Taken by Nursing 12/09/20 15:01 Pulse Rate 61 Pulse Rate from SpO2 Sensor 62 Respiratory Rate 21 Blood Pressure Blood Pressure Mean Pulse Oximetry 96 Oxygen Delivery Method Room Air Sepsis Recent Fever Within 48 Hours Sepsis New/Unexplained Change in Mental Status Sepsis Action Taken by Nursing Physical Exam GENERAL: She is oriented to person, place, and time. She appears well-developed and well-nourished. She does not appear distressed. HENT: Exam performed. -Head: Normocephalic and atraumatic. -Right Ear: External ear normal. No mastoid tenderness. -Left Ear: External ear normal. No mastoid tenderness. -Mouth/Throat: The oropharynx is clear and moist. No trismus in the jaw. No dental abscesses or uvula swelling. No oropharyngeal exudate or tonsillar abscesses. EYES: Conjunctivae and EOM are normal. Pupils are equal, round, and reactive to light. Right eye exhibits no discharge. Left eye exhibits no discharge. No scleral icterus. NECK: Normal range of motion. Neck supple. No JVD present. No spinous process tenderness present. No carotid bruit present. No rigidity. No tracheal deviation and normal range of motion present. No Brudzinski's sign and no Kernig's sign noted. CV: Normal rate, regular rhythm, normal heart sounds and intact distal pulses. There is no peripheral edema. Palpable radial pulses bue. PULM/CHEST: Effort normal and breath sounds normal. No respiratory distress. No stridor. She has no wheezes. She has no rales. -Chest Wall: She exhibits no tenderness. ABD: The abdomen is soft. Bowel sounds are normal. She has no distension. No mass is present. There is no tenderness. There is no rebound, no guarding, no Cruz's sign and no tenderness at McBurney's point. Rovsig negative MUSC/SKEL: Normal range of motion. There is no peripheral edema, tenderness or deformity. LYMPH: No cervical adenopathy. NEURO: She is alert and oriented to person, place, and time. She has normal strength. No cranial nerve deficit or sensory deficit. Coordination and gait normal. GCS eye subscore is 4. GCS verbal subscore is 5. GCS motor subscore is 6. Cerebellar tests wnl. SKIN: Skin is warm and dry. She is not diaphoretic. PSYCH: She has a normal mood and affect. Behavior is normal. Judgment and thought content normal. Course Course 1405: The patient was evaluated in room C7. A complete history and physical exam was performed Cardiac monitoring: An order was placed for continuous cardiac monitoring. The monitor shows a rate of 70 with sinus rhythm 1540: Vital signs stable. Labs and imaging within normal limits. Patient states her chest pain completely resolved after 1 sublingual nitro. [facility] be [facility] team for chest pain rule out ACS. Administered Medications Nitroglycerin (Nitroglycerin Sl 0.4 Mg/Tab Tab) 0.4 mg SL UD PRN PRN Reason: Chest Pain Stop: 01/08/21 14:09 Last Admin: 12/09/20 14:29 Dose: 0.4 mg Documented by: [id number] Discontinued Medications Aspirin (Aspirin Chew 324 Mg) 324 mg PO NOW STA Stop: 12/09/20 14:34 Last Admin: 12/09/20 15:40 Dose: 324 mg Documented by: [id number] Medical Decision Making Laboratory Data Result diagrams: 12/09/20 14:21 12/09/20 14:21 Labs: Lab Results 12/09/20 12/09/20 12/09/20 Range/Units 14:21 14:21 14:21 WBC 9.49 (4.8-10.8) K/uL RBC 4.60 (4.2-5.4) M/uL Hgb 13.8 (12.0-16.0) g/dL Hct 42.1 (37-47) % MCV 91.5 (80-100) fL MCH 30.0 (25-34) pg MCHC 32.8 (32-36) g/dL RDW Std Deviation 43.0 (36.4-46.3) fL RDW Coeff of [place] 12.8 (11.5-14.5) % Plt Count 246 (130-400) K/uL MPV 11.0 H (7.4-10.4) fL Immature Gran % (Auto) 0.3 % Neut % (Auto) 58.0 % Lymph % (Auto) 32.0 % [place] % (Auto) 7.4 % Eos % (Auto) 2.1 % Baso % (Auto) 0.2 % Neut # (Auto) 5.50 (1.4-6.5) K/uL Lymph # (Auto) 3.04 (1.2-3.4) K/uL [place] # (Auto) 0.70 H (0.11-0.59) K/uL Eos # (Auto) 0.20 (0-0.5) K/uL Baso # (Auto) 0.02 (0-0.2) K/uL Immature Gran # (Auto) 0.03 H (0.00-0.02) K/uL PT 10.6 (9.0-12.0) Seconds INR 1.0 (0.9-1.1) APTT 26.0 (21.0-31.0) Seconds PTT Ratio 1.0 D-Dimer 190 (0-500) ug/L FEU Sodium 141 (136-145) mmol/L Potassium 4.0 (3.5-5.1) mmol/L Chloride 107 (98-107) mmol/L Carbon Dioxide 28 (21-32) mmol/L Anion Gap 6.0 (3-11) BUN 13 (7-18) mg/dl Creatinine 0.87 (0.6-1.2) mg/dl Est Cr Clr Drug Dosing 51.1 ml/min Est GFR ( Amer) 72.4 ml/min Est GFR (Non-Af Amer) 62.5 ml/min BUN/Creatinine Ratio 14.7 (10-20) Glucose 161 H (70-99) mg/dl Calcium 9.1 (8.5-10.1) mg/dl Troponin I 0.027 (0-0.045) ng/ml Lipase 136 (73-393) U/L Imaging Data Chest x-ray: Radiologist's impression: Chest X-Ray 12/09/20 14:10 XR chest 2V PA/lateral CLINICAL HISTORY: Chest Pain COMPARISON STUDY: Chest radiograph October 26, 2019. FINDINGS: Lung volumes are normal. Lungs are clear. There is no pneumothorax or pleural effusion. Mild cardiomegaly is noted. Mediastinal contours are normal. There is no evidence for pulmonary edema. IMPRESSION: No acute cardiopulmonary findings. ACT 112: Negative or not required by law. Electronically signed by: Conor Elizondo M.D. 12/09/2020 3:35 PM ECG Data Indication: chest pain Rate (beats per minute): 66 Rhythm: normal sinus Findings: no ST depression, no ST elevation and no prolonged QT MDM Narrative Vital signs stable. Labs and imaging within normal limits. Patient states her chest pain completely resolved after 1 sublingual nitro. Patient will be admitted to the [facility] hospitalist team for chest pain rule out ACS. Impression & Plan Chest pain Discharge Plan Visit Data Chief Complaint: Cardiac Assessment Stated Complaint: CHEST PAINS,SOB,NAUSEA,REF BY DOC ED Provider: Marques Glover Discharge Problem: Chest pain Patient Disposition: Being Evaluated by Hospitalist Forms Stand Alone Forms: [facility] Prescriptions Prescriptions: No Action fluoxetine 40 mg capsule 40 mg PO QAM RF: 0 atorvastatin 20 mg tablet 20 mg PO QAM RF: 0 glipizide 10 mg tablet 10 mg PO QAM RF: 0 propranolol 60 mg capsule,extended release 24 hr 60 mg PO QPM RF: 0 omeprazole 40 mg capsule,delayed release(DR/EC) 40 mg PO QAM RF: 0 lorazepam 0.5 mg tablet 0.5 mg PO QPM RF: 0 Eliquis 5 mg tablet 5 mg PO QPM RF: 0 sumatriptan succinate 25 mg tablet 25 mg PO UD PRN (Reason: Migraine Headache) RF: 0 metformin 500 mg tablet extended release 24 hr 1,000 mg PO BIDM RF: 0 Breo Ellipta 200-25 mcg/dose blister with device 1 inh INHALATION DAILY RF: 0 cyanocobalamin (vitamin B-12) [Vitamin B-12] 100 mcg Tablet 100 mcg PO QAM RF: 0 garlic 100 mg Tablet 100 mg PO QAM RF: 0 Referrals Referrals: Isreal Jones MD [Primary Care Provider] - Discharge Problem: Chest pain Qualifiers: Chest pain type: unspecified Qualified Code(s): R07.9 - Chest pain, unspecified
[2020-12-09 14:39] LABS: Basophils # (auto) 0.02 K/uL (0-0.2); Basophils % (auto) 0.2 %; Eosinophils % (auto) 2.1 %; Hematocrit (blood only) 42.1 % (37-47); Hemoglobin 13.8 g/dL (12.0-16.0); Immature Granulocytes # (auto) 0.03 K/uL (0.00-0.02); Immature Granulocytes % (auto) 0.3 %; Lymphocytes # (auto) 3.04 K/uL (1.2-3.4); Mean Corpuscular Hgb Conc 32.8 g/dL (32-36); Mean Corpuscular Volume 91.5 fL (80-100); Monocytes % (auto) 7.4 %; Platelet Count 246 K/uL (130-400); RDW Coefficient of Variation 12.8 % (11.5-14.5); White Blood Count 9.49 K/uL (4.8-10.8)
[2020-12-09 14:53] LABS: BUN Creatinine Ratio 14.7 (10-20); Calcium 9.1 mg/dl (8.5-10.1); Creatinine Clr Calc Pharmacy 51.1 ml/min; D Dimer 190 ug/L FEU (0-500); Est GFR (African American) 72.4 ml/min; Est GFR (Non-African American) 62.5 ml/min; Prothrombin Time 10.6 Seconds (9.0-12.0)
[2020-12-09 14:58] LABS: Troponin I 0.027 ng/ml (0-0.045)
--- NOTE | 2020-12-09 15:37 | XRay Report ---
XR chest 2V PA/lateral CLINICAL HISTORY: Chest Pain COMPARISON STUDY: Chest radiograph October 26, 2019. FINDINGS: Lung volumes are normal. Lungs are clear. There is no pneumothorax or pleural effusion. Mil d cardiomegaly is noted. Mediastinal contours are normal. There is no evidence for pulmonary edema. IMPRESSION: No acute cardiopulmonary findings. ACT 112: Negative or not required by law. Electronically signed by: Conor Elizondo M.D. 12/09/2020 3:35 PM
--- NOTE | 2020-12-09 15:57 | Electrocardiogram Report ---
Test Reason : Blood Pressure : / mmHG Vent. Rate : 066 BPM Atrial Rate : 066 BPM P-R Int : 154 ms QRS Dur : 072 ms QT Int : 412 ms P-R-T Axes : 042 018 093 degrees QTc Int : 431 ms Normal sinus rhythm Diffuse Minor Nonspecific T wave abnormality Abnormal ECG When compared with ECG of 26-OCT-2019 12:37, No significant change was found Confirmed by Bart Cazares ([id number]) on 12/09/2020 3:57:32 PM Referred By: Allegra Wolf Confirmed By:Bart Cazares
--- NOTE | 2020-12-09 17:17 | History & Physical Report ---
Date of Service December 09, 2020 Assessment & Plan (1) Chest pain: Pt is 80 y/o F with PMH DM II, dyslipidemia, asthma/COPD, depression, anxiety, GERD, paroxysmal atrial fibrillation on Eliquis, pancreatic cyst, TAY on CPAP presented to ER with complaint of chest pain started at 0200 today with palpitations lasting 1 hour, Chest discomfort continued. In ER vitals stable. Initial troponin detectable at 0.027, EKG sinus rhythm with diffuse T wave flattening, negative D-dimer. Was given 324 mg aspirin and 1 sublingual nitroglycerin with relief of chest discomfort. Patient being admitted for further evaluation. CHEST PAIN R/O ACS. Risk factors: dyslipidemia, DM, obesity. DDX: episode of atrial fibrillation, musculoskeletal etiology -Monitor Vitals -Repeat EKG in am -Will trend troponin -Echo -lipid panel in am, continue statin -aspirin -Nitro prn CP and repeat EKG for CP -Cardiology consult (2) Paroxysmal atrial fibrillation: May have had episode atrial fibrillation therapist asst hours with report of palpitations and heart rate 140 Patient only taking Eliquis once daily secondary to easy bruising -Continue Eliquis twice daily. Spoke with cardiology who recommended continuing Eliquis and no need for heparin at this time -Continue propranolol (3) Diabetes mellitus, type II: A1c: 7.4 in 07/2020 -Hold Metformin and glipizide -NovoLog sliding scale per protocol -A1c in a.m. (4) Dyslipidemia: -Continue statin (5) COPD (chronic obstructive pulmonary disease): Asthma No signs exacerbation at this time -Continue albuterol, Breo (6) Depression: -Continue fluoxetine (7) TAY (obstructive sleep apnea): -CPAP at bedtime (8) GERD (gastroesophageal reflux disease): -Continue PPI (9) Essential tremor: -Continue propranolol DVT Prophylaxis -On Eliquis Full Code as per discussion with pt Follows with Dr Jones for routine care Pt was seen and care coordinated with Dr Burrows. See addendum History of Present Illness Chief Complaint: CP Primary Care Provider: Isreal oJnes MD Pt is 80 y/o F with PMH DM II, dyslipidemia, asthma/COPD, depression, anxiety, GERD, paroxysmal atrial fibrillation on Eliquis, pancreatic cyst, TAY on CPAP presented to ER with complaint of chest pain. Patient states woke up at 2 AM today with aching to left chest and left arm. Also noted "pounding" of heart. Reports checked her pulse with home pulse oximeter and was reading 140. States she had associated dizziness, slight nausea. She reports palpitations lasted an hour. Left chest aching continued and presented to ER today. In ER was given 1 sublingual nitroglycerin with relief of chest aching. She denies any recurrent palpitations. Used heating pad to left chest with little relief of chest aching. Patient denies trauma. She does report she has been working in her garden. Patient reports in past has had spasms to muscles over her chest wall however it is usually not related with palpitations. Patient states has been taking Eliquis once daily instead of twice daily secondary to easy bruising. Had two COVID-19 vaccinations ([employer]) in August 2020. She notes some swelling ankles when outside working in garden resolves with elevation of feet. Denies fever/chills, V/D/C, PEREZ, syncope, vision changes, neck pain, SOB, orthopnea, palpitations, cough, sore throat, choking, otalgia, rhinorrhea, abdominal pain, paresthesias, weakness, extremity weakness, rashes, urinary symptoms. In ER vitals stable. Initial troponin detectable at 0.027, EKG sinus rhythm with diffuse T wave flattening, negative D-dimer. Was given 324 mg aspirin and 1 sublingual nitroglycerin with relief of chest discomfort. Patient being admitted for further evaluation. Allergies Allergy/AdvReac Type Severity Reaction Status Date / Time No Known Allergies Allergy Unverified 12/09/20 14:25 Home Medications Medication Instructions Recorded Confirmed Type Eliquis 5 mg PO BID 10/26/19 12/09/20 History atorvastatin 20 mg PO QAM 10/26/19 12/09/20 History fluoxetine 40 mg PO QAM 10/26/19 12/09/20 History glipizide 10 mg PO QAM 10/26/19 12/09/20 History lorazepam 0.5 mg PO QPM 10/26/19 12/09/20 History omeprazole 40 mg PO QAM 10/26/19 12/09/20 History propranolol 60 mg PO QPM 10/26/19 12/09/20 History cyanocobalamin (vitamin B-12) 100 mcg PO QAM 12/09/20 12/09/20 History [Vitamin B-12] fluticasone furoate-vilanterol 1 inh INHALATION DAILY 12/09/20 12/09/20 History [Breo Ellipta] garlic 100 mg PO QAM 12/09/20 12/09/20 History metformin 1,000 mg PO BIDM 12/09/20 12/09/20 History sumatriptan succinate 25 mg PO UD PRN 12/09/20 12/09/20 History Past Med/Surg History Medical History (Updated 12/09/20 @ 18:42 by Maritza Santillan PA-C) Asthma COPD (chronic obstructive pulmonary disease) Depression Diabetes mellitus, type II Dyslipidemia Essential tremor GERD (gastroesophageal reflux disease) TAY (obstructive sleep apnea) Pancreatic cyst Paroxysmal atrial fibrillation Surgical History (Updated 12/09/20 @ 18:33 by Maritza Santillan PA-C) History of appendectomy History of tonsillectomy and adenoidectomy Family History (Updated 12/09/20 @ 18:33 by Maritza Santillan PA-C) Other Cancer Diabetes Hypertension Stroke Social History (Updated 12/09/20 @ 18:34 by Maritza Santillan PA-C) Smoking Status: Never smoker Second Hand Exposure: Yes; Hx Alcohol Use: Yes Alcohol type: hard liquor Alcohol Intake Frequency: Monthly or Less Hx Substance Use: No Preferred Language: Estonian Communication Ability: Effective Precipitator Operator Required: No Beliefs That Will Affect Care: None marital status: Current Living Situation: Spouse Feels Safe at Home: Yes Assistive Devices: None Review of Systems Review of Systems: All systems reviewed & are unremarkable except as noted in HPI & below Physical Exam Physical Exam: General: no acute distress, overweight Head: normocephalic, atraumatic Eyes: conjunctiva non-injected, anicteric ENT: normal inspection external ears, nose, mucous membranes moist Neck: supple, trachea midline Lungs: clear, no respiratory distress, no wheezing/rhonchi/rales CV: RRR, no murmur, no pretibial edema, left chest wall with slight tenderness to palpation Abd: normal BS, soft, non-tender Ext: no cyanosis, no calf tenderness Neuro: A&O x 3, no focal deficits noted, normal affect Skin: warm, dry Results & Data Results & Data ([facility]) Vital Signs (Past 12 Hours) Vital Signs Pulse Resp BP Pulse Ox 12/09/20 15:01 61 21 96 12/09/20 15:00 60 21 119/65 96 12/09/20 14:30 66 18 127/65 99 12/09/20 14:13 98 12/09/20 14:12 65 18 98 12/09/20 14:05 69 21 146/84 H 98 12/09/20 14:03 71 18 146/84 H 98 Laboratory Results Short CBC 12/09/20 Range/Units 14:21 WBC 9.49 (4.8-10.8) K/uL Hgb 13.8 (12.0-16.0) g/dL Hct 42.1 (37-47) % Plt Count 246 (130-400) K/uL BMP 12/09/20 14:21 Sodium 141 Potassium 4.0 Chloride 107 Carbon Dioxide 28 BUN 13 Creatinine 0.87 Glucose 161 H Calcium 9.1 Cardiac Enzymes 12/09/20 Range/Units 14:21 Troponin I 0.027 (0-0.045) ng/ml Diagnostic Findings Chest X-Ray 12/09/20 14:10 XR chest 2V PA/lateral CLINICAL HISTORY: Chest Pain COMPARISON STUDY: Chest radiograph October 26, 2019. FINDINGS: Lung volumes are normal. Lungs are clear. There is no pneumothorax or pleural effusion. Mild cardiomegaly is noted. Mediastinal contours are normal. There is no evidence for pulmonary edema. IMPRESSION: No acute cardiopulmonary findings. ACT 112: Negative or not required by law. Electronically signed by: Conor Elizondo M.D. 12/09/2020 3:35 PM ECG Rate (beats per minute): 66 Rhythm: sinus rhythm Additional Comments: diffuse T wave flattening Supervising Physician Co-Signing Physician Notes Attending addendum: The patient was seen and examined in emergency room She woke up from sleep early in the morning around 2 AM with palpitation and some left precordial discomfort which lasted for about an hour She has had some pain and discomfort referred to the left neck and also left upper extremity Did have minimal shortness of breath and sweating but no nausea and/or vomiting Her pain was relieved with 1 sublingual nitro in the emergency room On examination No apparent distress at rest but remains anxious Hemodynamically stable Chest-clear to auscultate bilaterally. Tenderness over the precordium. Heart-S1-S2 regular, no murmur appreciated Abdomen-benign Extremities-trace edema bilaterally SCRAP HOIST OPERATOR-alert, awake and oriented x3 Her admission labs, EKG and imaging studies reviewed No significant EKG abnormality and no increase in troponin Given the symptoms being typical of angina and/or PAF she will be admitted to telemetry unit We will get serial cardiac enzymes rule out possibility of ACS and cardiology consult Agree with assessment and plan as outlined above by TEX [address] Dr (1) Chest pain Chest pain type: unspecified Qualified Code(s): R07.9 - Chest pain, un specified
[2020-12-09] MEDS ORDERED: CARBOHYDRATES FOR HYPOGLYCEMIA PO PRN (20:32)
[2020-12-09] MEDS ORDERED: DEXTROSE 50% 50 ML SYRINGE IV PRN (20:32)
[2020-12-09] MEDS ORDERED: GLUCOSE 10 TABS/TUBE PO PRN (20:32)
[2020-12-09] MEDS ORDERED: GLUCAGON FOR INJ 1 MG VIAL SQ PRN (20:32)
[2020-12-09] MEDS ORDERED: GLUCOSE 40% GEL 15 GM TUBE PO PRN (20:32)
[2020-12-09] MEDS ORDERED: ACETAMINOPHEN 325 MG TAB PO PRN (20:32)
[2020-12-09] MEDS ORDERED: LIDOCAINE 5% 1 PATCH TD SCH (21:00)
[2020-12-09] MEDS ORDERED: PROPRANOLOL HCL 60 MG LA CAP PO SCH (21:00)
[2020-12-09] MEDS ORDERED: APIXABAN 5 MG TABLET PO SCH (21:00)
[2020-12-09] MEDS ORDERED: LORazepam 0.5 MG TAB PO SCH (21:00)
[2020-12-09] MEDS: INSULIN ASPART 100 UNITS/ML 3 ML PEN SC SCH (21:17)
[2020-12-09] MEDS: APIXABAN 5 MG TABLET PO SCH (21:55)
[2020-12-10 02:45] LABS: Hematocrit (blood only) 39.9 % (37-47); Mean Corpuscular Hemoglobin 30.3 pg (25-34); Mean Corpuscular Hgb Conc 32.6 g/dL (32-36); Mean Platelet Volume 10.5 fL (7.4-10.4); Platelet Count 240 K/uL (130-400); RDW Coefficient of Variation 12.9 % (11.5-14.5); RDW Standard Deviation 44.2 fL (36.4-46.3); Red Blood Count 4.29 M/uL (4.2-5.4); White Blood Count 7.69 K/uL (4.8-10.8)
[2020-12-10 03:02] LABS: BUN Creatinine Ratio 19.7 (10-20); Calcium 8.4 mg/dl (8.5-10.1); Est GFR (African American) 83.9 ml/min; Est GFR (Non-African American) 72.4 ml/min; Potassium 3.9 mmol/L (3.5-5.1)
[2020-12-10 03:06] LABS: Troponin I 0.022 ng/ml (0-0.045)
[2020-12-10 05:48] LABS: Estimated Average Glucose 148 mg/dl; Hemoglobin A1C 6.8 % (4.5-5.6)
--- NOTE | 2020-12-10 08:21 | Cardiology Consultation ---
Date of Consultation December 10, 2020 Assessment & Plan (1) Chest pain: (2) Paroxysmal atrial fibrillation: (3) Diabetes mellitus, type II: (4) DJD (degenerative joint disease) of cervical spine: I believe the patient's chest pain which brought her to her primary care physician and eventually to the emergency department is atypical for cardiac angina. It is likely from degenerative joint disease of her neck. I also doubt that it was from paroxysmal atrial fibrillation although during the acute pain she may have had some tachycardia. I do not believe any further inpatient cardiac testing is indicated. From a cardiac standpoint I believe she may be discharged home and I will arrange follow-up with her test desk trouble locator for further evaluation and treatment as an outpatient. History of Present Illness Attending Physician: Nicolle Walton, DO History of Present Illness This is an 80-year-old female who usually follows with our clinic for paroxysmal atrial fibrillation. She was in her usual state of health and then early Saturday morning she was awoken from sleep. She has sleep apnea and sleeps with a mask on. Her mouth was dry and she had discomfort in the back of her neck radiating across to her left shoulder and down into her left breast. This is not unusual for her and has occurred in the past involving the left scapular area. As mentioned above she was awoken from sleep with this discomfort. It was severe and she got out of bed and went to the living room of her home where she sat in a chair propped up with pillows. After approximately an hour it began to feel better. Later that morning when her woke she still has some residual discomfort but felt better. During the severe pain she felt her heart racing but after the pain improved her heart rate slowed. She denies shortness of breath. No dizziness or lightheadedness. She contacted her primary care physician office later that morning and was seen by one of the practitioners who referred her to the emergency department. She was admitted to a telemetry floor. She was in sinus rhythm and has remained in sinus rhythm throughout her hospital stay. Her EKG showed no acute changes. Cardiac markers are negative. She is currently comfortable and pain-free. An echocardiogram was completed and shows normal LV function and no wall motion abnormalities that would suggest ischemic heart disease. Past medical history: 1. Paroxysmal atrial fibrillation 2. Dyslipidemia 3. Type 2 diabetes 5. COPD Allergies Allergy/AdvReac Type Severity Reaction Status Date / Time No Known Allergies Allergy Unverified 12/09/20 14:25 Home Medications Medication Instructions Recorded Confirmed Type Eliquis 5 mg PO BID 10/26/19 12/09/20 History atorvastatin 20 mg PO QAM 10/26/19 12/09/20 History fluoxetine 40 mg PO QAM 10/26/19 12/09/20 History glipizide 10 mg PO QAM 10/26/19 12/09/20 History lorazepam 0.5 mg PO QPM 10/26/19 12/09/20 History omeprazole 40 mg PO QAM 10/26/19 12/09/20 History propranolol 60 mg PO QPM 10/26/19 12/09/20 History cyanocobalamin (vitamin B-12) 100 mcg PO QAM 12/09/20 12/09/20 History [Vitamin B-12] fluticasone furoate-vilanterol 1 inh INHALATION DAILY 12/09/20 12/09/20 History [Breo Ellipta] garlic 100 mg PO QAM 12/09/20 12/09/20 History metformin 1,000 mg PO BIDM 12/09/20 12/09/20 History sumatriptan succinate 25 mg PO UD PRN 12/09/20 12/09/20 History Patient History Medical History Asthma COPD (chronic obstructive pulmonary disease) Depression Diabetes mellitus, type II Dyslipidemia Essential tremor GERD (gastroesophageal reflux disease) TAY (obstructive sleep apnea) Pancreatic cyst Paroxysmal atrial fibrillation Surgical History History of appendectomy History of tonsillectomy and adenoidectomy Family History Other Cancer Diabetes Hypertension Stroke Social History Smoking Status: Never smoker Second Hand Exposure: Yes; Hx Alcohol Use: Yes Alcohol type: hard liquor Alcohol Intake Frequency: Monthly or Less Hx Substance Use: No Preferred Language: Egyptian Communication Ability: Effective Chief Warden Required: No Beliefs That Will Affect Care: None marital status: Current Living Situation: Spouse Current Living Situation Comment: with Feels Safe at Home: Yes Assistive Devices: CPAP, Denture - Upper, Denture - Lower and Glasses Review of Systems Review of Systems: All systems reviewed & are unremarkable except as noted in HPI & below Nothing additional to add. Physical Exam Physical Exam: General: no acute distress and stated age Head: normocephalic, no masses, lesions, tenderness or abnormalities Eyes: conjunctiva are pink and non-injected, sclera clear Neck: supple, no adenopathy, no bruits, normal jugular venous pulse, no hepatojugular reflux Chest: normal shape and normal respiratory effort Lungs: clear to auscultation and percussion Cardiac Exam: - regular rate & rhythm, no murmurs gallops or rubs - normal S1, normal S2 Pulses: 2(+) throughout Abdomen: abdomen soft, non-tender, no abnormal masses and no hepatosplenomegaly Musculoskeletal: no gait disturbance, no joint inflammation, no deforming arth ritis Extremities: no edema and no cyanosis Neuro: grossly normal exam Results & Data ([facility]) Vital Signs (Past 12 Hours) Vital Signs Temp Pulse Pulse Pulse Resp BP BP 12/10/20 07:11 36.8 C 60 18 143/82 H 12/10/20 04:05 37 C 58 L 18 150/82 H 12/09/20 23:14 66 12/09/20 22:58 36.6 C 56 L 18 147/71 H 12/09/20 21:19 61 12/09/20 20:33 36.5 C 61 20 179/95 H 12/09/20 20:32 36.5 C 61 18 179/95 H Pulse Ox Pulse Ox 12/10/20 07:11 94 12/10/20 04:05 95 12/09/20 23:14 12/09/20 22:58 96 12/09/20 21:19 12/09/20 20:33 98 12/09/20 20:32 98 98 Laboratory Results Laboratory Results - last 24 hr 12/09/20 12/09/20 12/09/20 14:21 14:21 14:21 WBC 9.49 RBC 4.60 Hgb 13.8 Hct 42.1 MCV 91.5 MCH 30.0 MCHC 32.8 RDW Std Deviation 43.0 RDW Coeff of Temo 12.8 Plt Count 246 MPV 11.0 H Immature Gran % (Auto) 0.3 Neut % (Auto) 58.0 Lymph % (Auto) 32.0 Hinds % (Auto) 7.4 Eos % (Auto) 2.1 Baso % (Auto) 0.2 Neut # (Auto) 5.50 Lymph # (Auto) 3.04 Hinds # (Auto) 0.70 H Eos # (Auto) 0.20 Baso # (Auto) 0.02 Immature Gran # (Auto) 0.03 H PT 10.6 INR 1.0 APTT 26.0 PTT Ratio 1.0 D-Dimer 190 Sodium 141 Potassium 4.0 Chloride 107 Carbon Dioxide 28 Anion Gap 6.0 BUN 13 Creatinine 0.87 Est Cr Clr Drug Dosing 51.1 Est GFR ( Amer) 72.4 Est GFR (Non-Af Amer) 62.5 BUN/Creatinine Ratio 14.7 Glucose 161 H POC Glucose Estimat Average Glucose Hemoglobin A1c Calcium 9.1 Troponin I 0.027 Triglycerides Cholesterol LDL Cholesterol, Calc VLDL Cholesterol, Calc HDL Cholesterol Cholesterol/HDL Ratio Lipase 136 COVID-19 Eval Order SARS-CoV-2 (PCR) 12/09/20 12/09/20 12/09/20 16:13 16:13 20:49 WBC RBC Hgb Hct MCV MCH MCHC RDW Std Deviation RDW Coeff of Temo Plt Count MPV Immature Gran % (Auto) Neut % (Auto) Lymph % (Auto) Hinds % (Auto) Eos % (Auto) Baso % (Auto) Neut # (Auto) Lymph # (Auto) Hinds # (Auto) Eos # (Auto) Baso # (Auto) Immature Gran # (Auto) PT INR APTT PTT Ratio D-Dimer Sodium Potassium Chloride Carbon Dioxide Anion Gap BUN Creatinine Est Cr Clr Drug Dosing Est GFR ( Amer) Est GFR (Non-Af Amer) BUN/Creatinine Ratio Glucose POC Glucose Estimat Average Glucose Hemoglobin A1c Calcium Troponin I 0.021 Triglycerides Cholesterol LDL Cholesterol, Calc VLDL Cholesterol, Calc HDL Cholesterol Cholesterol/HDL Ratio Lipase COVID-19 Eval Order Covid19 at [facility] SARS-CoV-2 (PCR) NEGATIVE 12/10/20 12/10/20 12/10/20 02:25 02:25 02:25 WBC 7.69 RBC 4.29 Hgb 13.0 Hct 39.9 MCV 93.0 MCH 30.3 MCHC 32.6 RDW Std Deviation 44.2 RDW Coeff of Temo 12.9 Plt Count 240 MPV 10.5 H Immature Gran % (Auto) Neut % (Auto) Lymph % (Auto) Hinds % (Auto) Eos % (Auto) Baso % (Auto) Neut # (Auto) Lymph # (Auto) Hinds # (Auto) Eos # (Auto) Baso # (Auto) Immature Gran # (Auto) PT INR APTT PTT Ratio D-Dimer Sodium 142 Potassium 3.9 Chloride 108 H Carbon Dioxide 31 Anion Gap 3.0 BUN 15 Creatinine 0.77 Est Cr Clr Drug Dosing 57.0 Est GFR ( Amer) 83.9 Est GFR (Non-Af Amer) 72.4 BUN/Creatinine Ratio 19.7 Glucose 108 H POC Glucose Estimat Average Glucose 148 Hemoglobin A1c 6.8 H Calcium 8.4 L Troponin I 0.022 Triglycerides 173 H Cholesterol 112 LDL Cholesterol, Calc 44 VLDL Cholesterol, Calc 35 HDL Cholesterol 33 Cholesterol/HDL Ratio 3 Lipase COVID-19 Eval Order SARS-CoV-2 (PCR) 12/10/20 12/10/20 07:28 11:51 WBC RBC Hgb Hct MCV MCH MCHC RDW Std Deviation RDW Coeff of Temo Plt Count MPV Immature Gran % (Auto) Neut % (Auto) Lymph % (Auto) Hinds % (Auto) Eos % (Auto) Baso % (Auto) Neut # (Auto) Lymph # (Auto) Hinds # (Auto) Eos # (Auto) Baso # (Auto) Immature Gran # (Auto) PT INR APTT PTT Ratio D-Dimer Sodium Potassium Chloride Carbon Dioxide Anion Gap BUN Creatinine Est Cr Clr Drug Dosing Est GFR ( Amer) Est GFR (Non-Af Amer) BUN/Creatinine Ratio Glucose POC Glucose 108 H 138 H Estimat Average Glucose Hemoglobin A1c Calcium Troponin I Triglycerides Cholesterol LDL Cholesterol, Calc VLDL Cholesterol, Calc HDL Cholesterol Cholesterol/HDL Ratio Lipase COVID-19 Eval Order SARS-CoV-2 (PCR) Medications Administered Current Inpatient Medications Acetaminophen (Acetaminophen 325 Mg Tab) 650 mg PO Q4H PRN PRN Reason: Pain or Fever Stop: 01/08/21 20:31 Apixaban (Apixaban 5 Mg Tablet) 5 mg PO BID RUBI Stop: 01/08/21 20:59 Last Admin: 12/10/20 08:41 Dose: 5 mg Documented by: Atorvastatin Calcium (Atorvastatin 20 Mg Tab) 20 mg PO QAM RUBI Stop: 01/09/21 08:59 Last Admin: 12/10/20 08:42 Dose: 20 mg Documented by: Cyanocobalamin (Cyanocobalamin (Vitamin B-12) 100 Mcg Tablet) 100 mcg PO QAM [facility] Stop: 01/09/21 08:59 Last Admin: 12/10/20 08:42 Dose: 100 mcg Documented by: Dextrose (Dextrose 50% 50 Ml Syringe) 25 - 50 ml IV UD PRN; Protocol PRN Reason: Hypoglycemia Protocol Stop: 01/08/21 20:31 Fluoxetine HCl (Fluoxetine Hcl 20 Mg Cap) 40 mg PO QAM [facility] Stop: 01/09/21 08:59 Last Admin: 12/10/20 08:42 Dose: 40 mg Documented by: Fluticasone/Vilanterol (Fluticasone/Vilanterol 200/25mcg 14 Puffs/Inhaler) 1 puffs INH DAILY RUBI Stop: 01/09/21 08:59 Last Admin: 12/10/20 08:43 Dose: 1 puffs Documented by: Glucagon (Glucagon For Inj 1 Mg Vial) 1 mg SQ UD PRN; Protocol PRN Reason: Hypoglycemia Protocol Stop: 01/08/21 20:31 Glucose (Glucose 10 Tabs/Tube) 4 - 8 tabs PO UD PRN; Protocol PRN Reason: Hypoglycemia Protocol Stop: 01/08/21 20:31 Glucose (Glucose 40% Gel 15 Gm Tube) 15 - 30 gm PO UD PRN; Protocol PRN Reason: Hypoglycemia Protocol Stop: 01/08/21 20:31 Insulin Aspart (Insulin Aspart 100 Units/Ml 3 Ml Pen) 0 units SC ACHS RUBI Stop: 01/08/21 20:59 Last Admin: 12/10/20 08:41 Dose: Not Given Documented by: Lidocaine (Lidocaine 5% 1 Patch) 1 patch TD HS RUBI Stop: 01/08/21 20:59 Last Admin: 12/09/20 21:57 Dose: 1 patch Documented by: Lorazepam (Lorazepam 0.5 Mg Tab) 0.5 mg PO QPM RUBI Stop: 01/08/21 20:59 Last Admin: 12/09/20 21:54 Dose: 0.5 mg Documented by: Miscellaneous (Carbohydrates For Hypoglycemia ) 15 - 30 gm PO UD PRN PRN Reason: Hypoglycemia Protocol Stop: 01/08/21 20:31 Miscellaneous (Remove Lidoderm Patch) 1 ea N/A DAILY@0900 [facility] Stop: 01/09/21 08:59 Last Admin: 12/10/20 08:43 Dose: Not Given Documented by: Nitroglycerin (Nitroglycerin Sl 0.4 Mg/Tab Tab) 0.4 mg SL UD PRN PRN Reason: Chest Pain Stop: 01/08/21 20:31 Pantoprazole Sodium (Pantoprazole 40 Mg Tab) 40 mg PO QAM [facility] Stop: 01/09/21 08:59 Last Admin: 12/10/20 08:42 Dose: 40 mg Documented by: Propranolol HCl (Propranolol Hcl 60 Mg [place]) 60 mg PO QPM [facility] Stop: 01/08/21 20:59 Last Admin: 12/09/20 21:55 Dose: 60 mg Documented by: (1) Chest pain Chest pain type: unspecified Qualified Code(s): R07.9 - Chest pain, unspecified
[2020-12-10] MEDS: INSULIN ASPART 100 UNITS/ML 3 ML PEN SC SCH ×2 (08:41→13:14)
[2020-12-10] MEDS: APIXABAN 5 MG TABLET PO SCH (08:41)
[2020-12-10] MEDS ORDERED: ATORVASTATIN 20 MG TAB PO SCH (09:00)
[2020-12-10] MEDS ORDERED: FLUoxetine HCL 20 MG CAP PO SCH (09:00)
[2020-12-10] MEDS ORDERED: CYANOCOBALAMIN (VITAMIN B-12) 100 MCG TABLET PO SCH (09:00)
[2020-12-10] MEDS ORDERED: FLUTICASONE/VILANTEROL 200/25MCG 14 PUFFS/INHALER INH SCH (09:00)
[2020-12-10] MEDS ORDERED: PANTOprazole 40 MG TAB PO SCH (09:00)
--- NOTE | 2020-12-10 12:50 | Electrocardiogram Report ---
Test Reason : Blood Pressure : / mmHG Vent. Rate : 062 BPM Atrial Rate : 062 BPM P-R Int : 164 ms QRS Dur : 068 ms QT Int : 428 ms P-R-T Axes : 052 041 072 degrees QTc Int : 434 ms Normal sinus rhythm Diffuse Nonspecific T wave abnormality Abnormal ECG When compared with ECG of 09-DEC-2020 14:03, No significant change Confirmed by Bart Cazares ([id number]) on 12/10/2020 12:49:33 PM Referred By: Allegra Wolf Confirmed By:Bart Cazares
--- NOTE | 2020-12-10 14:04 | Discharge Summary ---
Date of Service December 10, 2020 Admission HPI Per Admitting Provider Pt is 80 y/o F with PMH DM II, dyslipidemia, asthma/COPD, depression, anxiety, GERD, paroxysmal atrial fibrillation on Eliquis, pancreatic cyst, TAY on CPAP presented to ER with complaint of chest pain. Patient states woke up at 2 AM today with aching to left chest and left arm. Also noted "pounding" of heart. Reports checked her pulse with home pulse oximeter and was reading 140. States she had associated dizziness, slight nausea. She reports palpitations lasted an hour. Left chest aching continued and presented to ER today. In ER was given 1 sublingual nitroglycerin with relief of chest aching. She denies any recurrent palpitations. Used heating pad to left chest with little relief of chest aching. Patient denies trauma. She does report she has been working in her garden. Patient reports in past has had spasms to muscles over her chest wall however it is usually not related with palpitations. Patient states has been taking Eliquis once daily instead of twice daily secondary to easy bruising. Had two COVID-19 vaccinations (ePrep) in August 2020. She notes some swelling ankles when outside working in garden resolves with elevation of feet. Denies fever/chills, V/D/C, PEREZ, syncope, vision changes, neck pain, SOB, orthopnea, palpitations, cough, sore throat, choking, otalgia, rhinorrhea, abdominal pain, paresthesias, weakness, extremity weakness, rashes, urinary symptoms. In ER vitals stable. Initial troponin detectable at 0.027, EKG sinus rhythm with diffuse T wave flattening, negative D-dimer. Was given 324 mg aspirin and 1 sublingual nitroglycerin with relief of chest discomfort. Patient being admitted for further evaluation. Admission Exam Per Admitting Provider General: no acute distress, overweight Head: normocephalic, atraumatic Eyes: conjunctiva non-injected, anicteric ENT: normal inspection external ears, nose, mucous membranes moist Neck: supple, trachea midline Lungs: clear, no respiratory distress, no wheezing/rhonchi/rales CV: RRR, no murmur, no pretibial edema, left chest wall with slight tenderness to palpation Abd: normal BS, soft, non-tender Ext: no cyanosis, no calf tenderness Neuro: A&O x 3, no focal deficits noted, normal affect Skin: warm, dry Principal Diagnosis Atypical chest pain Discharge Exam CONSTITUTIONAL: WNWD, vitals stable, generally well-appearing EYES: normal conjunctivae, no scleral icterus ENT: external ear and nose normal, MMM RESPIRATORY: clear to auscultation bilaterally, no crackles, rales or wheezes, normal respiratory effort CARDIOVASCULAR: regular rate and rhythm, S1 and 2 heard without murmurs, gallops or rubs, no JVD, no peripheral edema GASTROINTESTINAL: soft, nontender, nondistended MUSCULOSKELETAL: strength 5/5 throughout, head is normocephalic and atraumatic, ambulating independently. Some tender muscles to palpation on the left superior greater than right side. SKIN: warm and dry NEUROLOGIC: CN 2-12 grossly intact, no sensory deficit, normal cognition, normal speech, no tremor, no gross focal deficits. PSYCHIATRIC: alert cooperative and oriented to person, place and time. Discharge Data Allergies Allergy/AdvReac Type Severity Reaction Status Date / Time No Known Allergies Allergy Unverified 12/09/20 14:25 Consultations 12/09/20 15:40 ED Decision to Admit Stat 12/09/20 20:32 Consult Cardiology Routine Hospital Course (1) Chest pain: The patient is an 80-year-old female with a history of diabetes who presented to the ER reporting chest pain and palpitations. Troponin trend was negative and EKG revealed sinus rhythm with diffuse T wave flattening. She was given 324 mg of aspirin and 1 sublingual nitroglycerin with relief of chest discomfort. She was admitted to the hospitalist service and cardiology was consulted. It was noted that she has a history of sleep apnea and sleeps with a mask on. She noted discomfort in the back of her neck radiating across to her left shoulder and down to the left breast which was not unusual for her and has occurred in the past. Her pain on presentation had awoken her from sleep. manager staffing revealed sinus rhythm throughout her hospital stay and she remained hemodynamically stable throughout her hospital stay. At time of discharge she was comfortable and pain-free. An echocardiogram was completed and revealed normal LV function and no wall motion abnormalities that would suggest ischemic heart disease. It was felt her chest pain was atypical for cardiac angina and is more likely from degenerative joint disease of her neck. Examination did reveal muscular tenderness in the left trapezius area. Pain was also not felt secondary to paroxysmal atrial fibrillation although during the acute pain she may have had some tachycardia. Further inpatient cardiac testing was not indicated and she was discharged home in stable condition with close primary care follow-up recommended. Total Time Total Time Spent Total Time Spent (In Minutes): 60 Total Time Includes: Examination of the Patient, Discharge Planning, Medication Reconciliation and Communication With Other Providers Discharge Plan Discharge Items Patient Disposition: Home - Self-Care Reason For Visit: CP Discharge Diagnosis: Atypical chest pain Condition on Discharge: Good Activity: Resume your previous activity Non-emergency contact: Primary Care Provider Call non-emergency contact if: you have any medication questions, your symptoms worsen, your pain is not controlled, your pain is worsening, your pain is unusual for you and your pain is concerning for you Follow-up/Referrals: Isreal Jones MD [Primary Care Provider] - Diet: Carb Consistent or DM2 and Heart Healthy Addtl Attending Provider Instructions: Please take all medications as instructed on discharge list below. It is recommended to follow-up with your primary care provider within one week of hospital discharge to ensure you are doing well after returning home. It was a pleasure taking care of you! Please call if you have any questions or problems. You can reach a [facility] hospitalist on duty at [facility] 24 hours a day by calling [phone]. Take care of yourself. Nicolle Walton DO [facility] Hospitalist Pending Studies at Discharge: No Stand-Alone Forms: [facility] Medications and DC Order Prescriptions: Continued fluoxetine 40 mg capsule 40 mg PO QAM RF: 0 atorvastatin 20 mg tablet 20 mg PO QAM RF: 0 glipizide 10 mg tablet 10 mg PO QAM RF: 0 propranolol 60 mg capsule,extended release 24 hr 60 mg PO QPM RF: 0 omeprazole 40 mg capsule,delayed release(DR/EC) 40 mg PO QAM RF: 0 lorazepam 0.5 mg tablet 0.5 mg PO QPM RF: 0 Eliquis 5 mg tablet 5 mg PO BID RF: 0 sumatriptan succinate 25 mg tablet 25 mg PO UD PRN (Reason: Migraine Headache) RF: 0 metformin 500 mg tablet extended release 24 hr 1,000 mg PO BIDM RF: 0 Breo Ellipta 200-25 mcg/dose blister with device 1 inh INHALATION DAILY RF: 0 cyanocobalamin (vitamin B-12) [Vitamin B-12] 100 mcg Tablet 100 mcg PO QAM RF: 0 garlic 100 mg Tablet 100 mg PO QAM RF: 0 Discharge Orders: Discharge Order (Routine); Ordered 12/10/20 Ordered By: Nicolle Walton Admission Data Admit Date/Time: 12/09/20 17:43 Attending Provider: Nicolle Walton Admit Provider: Maria Alejandra Burrows Primary Care Provider: Isreal Jones Other Providers: Naveen Campbell Other Interventions: Discharge Summary Assessment (RN) Last Done: 12/10/20 14:11
== END 2020-12-10 14:46 | disposition home or self-care (01) ==
LOC: ED 13:52 → 2N 13:52 → SUATTDRO 17:43 → 2N 20:22